=== PATIENT | female | born 1970 | race Caucasian/White ===

== ENCOUNTER 2022-12-24 02:22 | Emergency (ER) | payer OTHER, SELFPAY ==
[2022-12-24] VITALS (18 sets, daily range): BP systolic 148; BP diastolic 86; PULSE 59–78; RESP 7–25; TEMP 36.9; O2SAT 92–100; BMI 32.1
--- NOTE | 2022-12-24 02:37 | XR_ITS ---
The [address] [address] Patient Name: LAURY CRISOSTOMO MRN: [id number] date: 1970 Sex: F Assigned Patient Location: ER Current Patient Location: ED.MAIN Accession/Order Number: [id number] Exam Date: 12/24/2022 02:50 Report Date: 12/24/2022 03:40 At the request of: SANTIAGO DENG Procedure: XR chest 1V XR chest 1V 12/24/2022 2:50 AM EDT CLINICAL INDICATION: Abdominal pain COMPARISON: None. TECHNIQUE: Portable semiupright AP view of the chest. FINDINGS: There are no tubes or implants noted. Cardiac silhouette appears enlarged. No pulmonary edema. The lungs are clear. No pneumothorax or pleural effusion. Osseous structures and soft tissues are within normal limits. XR/XR chest 1V IMPRESSION: No acute cardiopulmonary abnormality. Electronically authenticated by: FARTUN JOSUE Date: 12/24/2022 03:40
--- NOTE | 2022-12-24 02:37 | ED_ITS ---
HPI - Abdominal Pain General Chief Complaint: Abdominal Pain Stated Complaint: ABD PAIN Time Seen by Provider: 12/24/22 02:35 Source: patient Mode of arrival: walk-in Limitations: no limitations History of Present Illness HPI narrative: epigastric abdominal pain on and off over the past 2 weeks vomited with episode of pain last week. No nausea or vomiting tonight but has epigastric pain that radiates into her back. No fever or dyspnea. No pleuritic pain MD elicited complaint: Reports abdominal pain Related Data Home Medications Medication Instructions Recorded Confirmed lisinopril 10 mg tablet mg 12/24/22 Allergies Allergy/AdvReac Type Severity Reaction Status Date / Time No Known Drug Allergies Allergy Verified 12/24/22 02:28 Review of Systems ROS Status of ROS 10 or more systems reviewed and unremarkable except as noted in history and below Gastrointestinal Reports: abdominal pain PFSH PFSH Social History Smoking status: Never smoker Exam Constitutional Vital Signs, click to edit/add: Last Vital Signs Temp 98.5 F 12/24/22 02:24 Pulse 75 12/24/22 04:10 Resp 21 12/24/22 04:10 BP 148/86 H 12/24/22 02:24 Pulse Ox 92 L 12/24/22 04:10 O2 Del Method Room Air 12/24/22 02:24 Common normals: oriented x3, no limitations, healthy appearing and alert HENMO Common normals: normocephalic and head/scalp atraumatic Eye Common normals: PERRL, EOMs intact bilaterally and conjunctivae normal Respiratory Common normals: normal respiratory effort, no retractions, no use of accessory muscles and clear to auscultation bilaterally Cardio Common normals: no JVD, regular rate, regular rhythm, S1 normal heart sound and S2 normal heart sound GI Other: epigastric and RUQ tenderness. No guarding Extremity Common normals: normal to inspection and full ROM Neuro Common normals: oriented x3, CN's II-XII intact bilaterally, moves all extremities, no focal motor deficits and no sensory deficits noted Psych Appearance: grossly normal Course Vital Signs Vital signs: Vital Signs Temperature 98.5 F 12/24/22 02:24 Pulse Rate 78 12/24/22 02:24 Respiratory Rate 18 12/24/22 02:24 Blood Pressure 148/86 H 12/24/22 02:24 Pulse Oximetry 99 12/24/22 02:24 Oxygen Delivery Method Room Air 12/24/22 02:24 Temperature 98.5 F 12/24/22 02:24 Pulse Rate 75 12/24/22 04:10 Respiratory Rate 21 12/24/22 04:10 Blood Pressure 148/86 H 12/24/22 02:24 Pulse Oximetry 92 L 12/24/22 04:10 Oxygen Delivery Method Room Air 12/24/22 02:24 MDM - Abdominal Pain MDM Narrative Medical decision making narrative: presents with recurrent episodes of epigastric pain. LFTs WNL. CBC WNL. no fever. CT with normal appearing gallbladder and gallstones. Patient medicated with Toradol and her pain is down to 3 or less. Re exam of her abdomen found she is no longer tender. Patient informed of the diagnosis of biliary colic and the need to follow up with gen. surgery. Discharged home with instructions to return if pain increases again. Otherwise follow up with Dr Levy Differential Diagnosis Differential diagnosis: Likely constipation, diverticulitis, gastroenteritis, pancreatitis and small bowel obstruction Lab Data Labs: Lab Results 12/24/22 Range/Units 02:30 WBC 8.6 (4.0-11.0) 10^3/uL RBC 4.46 (4.20-5.40) 10^6/uL Hgb 13.3 (12.0-16.0) g/dL Hct 37.8 (36.0-48.0) % MCV 84.8 (81.0-99.0) fL MCH 29.8 (26.7-34.0) pg MCHC 35.2 (29.9-35.2) g/dL RDW 11.9 (11.0-15.0) % Plt Count 197 (150-450) 10^3/uL MPV 11.1 (9.5-13.5) fL Neut % (Auto) 58.1 (43.0-75.0) % Lymph % (Auto) 32.8 (20.5-60.0) % [place] % (Auto) 5.0 (1.7-12.0) % Eos % (Auto) 3.0 (0.9-7.0) % Baso % (Auto) 0.8 (0.2-2.0) % Neut # (Auto) 5.0 (1.4-6.5) 10^3/uL Lymph # (Auto) 2.8 (1.2-3.8) 10^3/uL [place] # (Auto) 0.4 (0.3-0.8) 10^3/uL Eos # (Auto) 0.3 (0.0-0.7) 10^3/uL Baso # (Auto) 0.1 (0.0-0.1) 10^3/uL Abs Immat Gran (auto) 0.03 (0.00-0.03) 10^3/uL Imm/Tot Granulo (auto) 0.3 (0.0-0.5) % Sodium 144 (136-145) mmol/L Potassium 3.5 (3.5-5.1) mmol/L Chloride 107 (98-107) mmol/L Carbon Dioxide 30.1 (21.0-32.0) mmol/L Anion Gap 10.4 BUN 18.0 (7.0-18.0) mg/dL Creatinine 0.84 (0.55-1.02) mg/dL Est GFR ( Amer) >60 (>=60) Est GFR (Non-Af Amer) >60 (>=60) BUN/Creatinine Ratio 21.4 Glucose 125 H (74-106) mg/dL Lactate 1.0 (0.4-2.0) mmol/L Calcium 8.6 (8.5-10.1) mg/dL Total Bilirubin 0.3 (0.2-1.0) mg/dL AST 13 L (15-37) U/L ALT 12 L (14-59) U/L Alkaline Phosphatase 104 (46-116) U/L Troponin I High Sens 5.0 (4.0-51.3) pg/mL Total Protein 6.9 (6.4-8.2) g/dL Albumin 3.9 (3.4-5.0) g/dL Globulin 3.0 g/dL Albumin/Globulin Ratio 1.3 Discharge Plan Discharge Chief Complaint: Abdominal Pain Clinical Impression: Colic, biliary Prescriptions / Home Meds: No Action lisinopril 10 mg tablet Instructions: Gallstones (ED) Additional Instructions: follow up with Dr Levy. Return if pain increases Stand Alone Forms: Portal Instructions Referrals: Keo Woodruff MD [Primary Care Provider] - 1 week
--- NOTE | 2022-12-24 02:38 | ECG_ITS ---
The [facility] Test Date: 2022-12-24 Pat Name: Alana Huggins Department: Room: - Gender: Female [employer]: : 1970 Requested By: RANJIT NARANJO Order Number: [id number] Reading MD: RANJIT NARANJO Measurements Intervals [place] Rate: 69 P: 63 PA: 166 QRS: 65 QRSD: 78 T: 28 QT: 384 QTc: 404 Interpretive Statements 1100 Sinus rhythm 9110 normal ECG No previous ECG available for comparison Electronically Signed On 12-25-2022 6:37:08 EDT by RANJIT NARANJO
--- NOTE | 2022-12-24 02:46 | PC.NURSE ---
pt presents to ED because patient states for the last couple weeks she has had epigastric pain. the pain today began to radiate into patients back. 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 pt states that it keeps happening and waking her up out of sleep when shes laying down. no hx of gerd. no previous abdominal surgeries.
[2022-12-24 03:10] LABS: Basophils Absolute Auto 0.1 10^3/uL (0.0-0.1); Basophils Percent Auto 0.8 % (0.2-2.0); Eosinophils Absolute Auto 0.3 10^3/uL (0.0-0.7); Hematocrit 37.8 % (36.0-48.0); Hemoglobin 13.3 g/dL (12.0-16.0); Immature Granulocytes Abs Auto 0.03 10^3/uL (0.00-0.03); Immature Granulocytes Pct Auto 0.3 % (0.0-0.5); Lymphocytes Absolute Auto 2.8 10^3/uL (1.2-3.8); Lymphocytes Percent Auto 32.8 % (20.5-60.0); Mean Corpuscular HGB Conc 35.2 g/dL (29.9-35.2); Mean Corpuscular Hemoglobin 29.8 pg (26.7-34.0); Mean Corpuscular Volume 84.8 fL (81.0-99.0); Mean Platelet Volume 11.1 fL (9.5-13.5); Monocytes Absolute Auto 0.4 10^3/uL (0.3-0.8); Neutrophils Percent Auto 58.1 % (43.0-75.0); Platelet Count 197 10^3/uL (150-450); Red Blood Count 4.46 10^6/uL (4.20-5.40); Red Cell Distribution Width 11.9 % (11.0-15.0); White Blood Count 8.6 10^3/uL (4.0-11.0)
[2022-12-24 03:39] LABS: Alanine Aminotransferase 12 U/L (14-59); Albumin Globulin Ratio 1.3; Albumin Level 3.9 g/dL (3.4-5.0); Alkaline Phosphatase 104 U/L (46-116); Anion Gap 10.4; Aspartate Amino Transferase 13 U/L (15-37); BUN Creatinine Ratio 21.4; Bilirubin Total 0.3 mg/dL (0.2-1.0); Calcium 8.6 mg/dL (8.5-10.1); Carbon Dioxide 30.1 mmol/L (21.0-32.0); Chloride 107 mmol/L (98-107); Estimated GFR (African America >60 (>=60); Estimated GFR (Non-African Ame >60 (>=60); Glucose 125 mg/dL (74-106); Potassium 3.5 mmol/L (3.5-5.1); Sodium 144 mmol/L (136-145); Total Protein 6.9 g/dL (6.4-8.2)
--- NOTE | 2022-12-24 03:40 | CT_ITS ---
[address] [address] Patient Name: LAURY CRISOSTOMO MRN: [id number] date: 1970 Sex: F Assigned Patient Location: ED.MAIN Current Patient Location: Accession/Order Number: [id number] Exam Date: 12/24/2022 03:28 Report Date: 12/24/2022 04:01 At the request of: SANTIAGO DENG Procedure: CT abdomen pelvis w con EXAM: CT abdomen pelvis w con HISTORY: epigastric pain COMPARISON: None. TECHNIQUE: Axial CT images through the abdomen and pelvis were obtained after the intravenous administration of 100 mL Omnipaque 300 contrast. Coronal and sagittal reformats were obtained. Dose reduction techniques were achieved by using automated exposure control and/or adjustment of mA and/or kV according to patient size and/or use of iterative reconstruction technique. FINDINGS: There is a 0.3 cm pleural-based nodule in the left lower lobe (series 3, image 5). There is a 0.3 cm pleural-based nodule in the right middle lobe (series 3, image 13). Abdomen: The liver and spleen enhance homogeneously without focal lesion. There is no intra or extrahepatic biliary duct dilatation. There is cholelithiasis without evidence of acute inflammation. The spleen is enlarged measuring up to 15.8 cm. The pancreas, adrenal glands, kidneys, and bowel loops are unremarkable. There is no mesenteric or retroperitoneal lymphadenopathy. High density material is seen within the appendix which is mildly dilated measuring up to 0.8 cm. There are no surrounding inflammatory changes. Pelvis: The bladder and rectum are unremarkable. There is no iliac or inguinal lymphadenopathy. The uterus is present. The ovaries appear within normal limits by CT. Suspected cervical nabothian cysts are seen. There is mild atherosclerotic disease. Bone windows show no aggressive osseous lesions. CT/CT abdomen pelvis w con IMPRESSION: 1. Cholelithiasis without evidence of acute inflammation. 2. There are a couple pleural-based nodules in the lung bases measuring up to 0.3 cm. Recommend follow-up according to Fleischner Society guidelines: An optional CT of the chest in the one year if the patient is high risk. 3. Splenomegaly. 4. High density material within the appendix which is mildly dilated measuring up to 0.8 cm; however, there are no surrounding inflammatory changes, and acute appendicitis is felt unlikely. Electronically authenticated by: Alfonso ONTIVEROS Date: 12/24/2022 04:01
[2022-12-24] MEDS: 0.9 % SODIUM CHLORIDE 1,000 ML 999 ML IV (03:50)
[2022-12-24] MEDS: KETOROLAC TROMETHAMINE 30 MG/ML VIAL IVP (04:32)
== END 2022-12-24 05:37 | disposition home or self-care (01) ==
PROVIDERS: Emergency Provider Internal Medicine; PCP Family Medicine
DX: K80.50 Calculus of bile duct without cholangitis or cholecystitis without obstruction (principal); Z79.899 Other long term (current) drug therapy
CPT/HCPCS: 36415; 71045; 74177; 80053; 83605; 84484; 85025; 93005; 96374; 99285; Q9967

== ENCOUNTER 2023-02-03 08:10 | Outpatient (OUT) | payer OTHER, SELFPAY ==
--- NOTE | 2023-02-03 08:53 | US_ITS ---
The [address] [address] Patient Name: LAURY CRISOSTOMO MRN: [id number] date: 1970 Sex: F Assigned Patient Location: [facility] Current Patient Location: [facility] Accession/Order Number: [id number] Exam Date: 02/03/2023 08:55 Report Date: 02/03/2023 09:39 At the request of: BERNARD ROMERO Procedure: US right upper quadrant EXAM: US right upper quadrant HISTORY: . Calculus Of Gallbladder K80.20 . COMPARISON: None. TECHNIQUE: Grayscale and color imaging was performed FINDINGS: Pancreas appears normal. The liver is normal in size. No masses are noted. Color-flow is noted. Scanning of the gallbladder demonstrates an echogenic focus within the gallbladder with shadowing consistent with a gallstone. This measures approximately 1.6 mm. No gallbladder wall thickening is noted. Patient had no pain upon scanning over the gallbladder. Right kidney measures 10.2 x 4.2 x 4 cm. Color-flow is noted. No solid renal cortical masses or hydronephrosis is noted. No fluid is noted in the right upper quadrant. US/US right upper quadrant IMPRESSION: 1. Cholelithiasis. No gallbladder wall thickening. Patient had no pain upon scanning over the gallbladder. 2. The remainder the right upper quadrant was unremarkable. Electronically authenticated by: DAVID JANG Date: 02/03/2023 09:39
[2023-02-03 09:11] LABS: Basophils Absolute Auto 0.1 10^3/uL (0.0-0.1); Basophils Percent Auto 0.9 % (0.2-2.0); Eosinophils Absolute Auto 0.2 10^3/uL (0.0-0.7); Eosinophils Percent Auto 2.2 % (0.9-7.0); Hematocrit 40.3 % (36.0-48.0); Hemoglobin 14.1 g/dL (12.0-16.0); Immature Granulocytes Abs Auto 0.03 10^3/uL (0.00-0.03); Immature Granulocytes Pct Auto 0.3 % (0.0-0.5); Lymphocytes Percent Auto 21.3 % (20.5-60.0); Mean Corpuscular Hemoglobin 29.3 pg (26.7-34.0); Mean Corpuscular Volume 83.6 fL (81.0-99.0); Monocytes Absolute Auto 0.4 10^3/uL (0.3-0.8); Monocytes Percent Auto 4.1 % (1.7-12.0); Neutrophils Absolute Auto 6.5 10^3/uL (1.4-6.5); Neutrophils Percent Auto 71.2 % (43.0-75.0); Platelet Count 185 10^3/uL (150-450); Red Blood Count 4.82 10^6/uL (4.20-5.40); Red Cell Distribution Width 12.1 % (11.0-15.0); White Blood Count 9.2 10^3/uL (4.0-11.0)
[2023-02-03 09:17] LABS: Alanine Aminotransferase 35 U/L (14-59); Albumin Globulin Ratio 1.2; Albumin Level 3.9 g/dL (3.4-5.0); Alkaline Phosphatase 104 U/L (46-116); Anion Gap 12.8; Aspartate Amino Transferase 27 U/L (15-37); Bilirubin Direct 0.2 mg/dL (0.0-0.2); Bilirubin Total 0.5 mg/dL (0.2-1.0); Chloride 105 mmol/L (98-107); Estimated GFR (African America >60 (>=60); Estimated GFR (Non-African Ame >60 (>=60); Globulin 3.2 g/dL; Glucose 118 mg/dL (74-106); Potassium 4.8 mmol/L (3.5-5.1); Sodium 143 mmol/L (136-145); Total Protein 7.1 g/dL (6.4-8.2)
[2023-02-03 09:30] LABS: INR 0.97; Partial Thromboplastin Time 26.7 sec (22.3-36.2); Prothrombin Time 10.3 sec (9.0-11.6)
== END 2023-02-03 08:11 | disposition home or self-care (01) ==
LOC: PST 08:10
PROVIDERS: PCP Family Medicine; Visit Provider Surgery
DX: Z01.812 Encounter for preprocedural laboratory examination (principal); K80.20 Calculus of gallbladder without cholecystitis without obstruction; I50.9 Heart failure, unspecified
CPT/HCPCS: 76705; 80048; 80076; 83690; 85025; 85610; 85730

== ENCOUNTER 2023-02-12 08:04 | Day surgery (SDC) | payer OTHER, SELFPAY ==
[2023-02-03 08:37] VITALS: BP 155/87; PULSE 69; RESP 20; TEMP 36.4; O2SAT 99; BMI 32.5
[2023-02-12] VITALS (17 sets, daily range): BP systolic 127–165; BP diastolic 73–99; PULSE 62–88; RESP 10–21; TEMP 36.1–36.3; O2SAT 94–100; BMI 32.0
--- NOTE | 2023-02-12 | OP_ITS ---
OPERATION DATE: ??02/12/2023 PREOPERATIVE DIAGNOSIS:? Symptomatic cholelithiasis. POSTOPERATIVE DIAGNOSIS:? Symptomatic cholelithiasis. PROCEDURE:? Laparoscopic cholecystectomy. SURGEON:? Andriy Stanford M.D. ANESTHESIA:? General endotracheal. ESTIMATED BLOOD LOSS:? Less than 10 mL. INDICATIONS AND CONSENT:? Patient is a 53-year-old female with history of several months of biliary colic.? Patient worsened over the last several weeks.? She has had normal liver function tests and ultrasound.? CT scan revealed two 1 cm stones in the fundus of the gallbladder.? Indications, risks, benefits, alternatives of proceeding with laparoscopic cholecystectomy were explained extensively to the patient, including risks of bleeding, infection, scarring, pain, bile duct injury, bowel injury, need for intraoperative cholangiogram, postoperative ERCP, open procedure, blood clot, pulmonary embolus, heart attack, anesthetic complications or need for further surgery.? All of her questions were answered.? Informed consent was obtained. PROCEDURE:? Patient brought to the operating room, placed in the supine position.? General anesthesia was induced.? She was prepped and draped in the usual sterile fashion.? A supraumbilical incision was made with the scalpel blade and carried down through subcutaneous tissue using blunt dissection.? The fascia was grasped and incised.? Two 0 Vicryl stay sutures placed in either side of the midline fascia.? The Madden trocar was then inserted and secured using the stay sutures.? The abdomen was then insufflated with carbon dioxide to a pressure of 15 mm/Hg.? The scope was then inserted and the abdomen was visualized.? Three 5 mm ports were then placed; one in the subxiphoid area, two in the right subcostal area, all under direct visualization.? The patient was placed in reverse Trendelenburg position with the right side up.? The gallbladder was grasped with an atraumatic grasper at the fundus, retracted cephalad and to the patient?s right.? The infundibulum was grasped and retracted laterally and inferiorly.? Dissection was begun just below the infundibulum, where the cystic duct and cystic artery were carefully dissected out.? The cystic duct was noted to be twisted by some scarring, causing a partial obstruction.? The cystic duct was noted to be a normal caliber, as was the cystic artery.? There was also a posterior branch.? Once the infundibulum was completely freed up from the hepatic plate, a critical view safety was obtained.? The artery was clipped with the Hem-O-Sergey clip and regular clip proximally and a regular clip distally and then divided, as was the posterior branch.? The cystic duct was then clipped with two Hem-O-Sergey clips proximally and one distally towards the gallbladder and then divided.? The gallbladder was then taken down from the liver bed using electrocautery.? There was a side vessel branch that was controlled with a clip.? Once the gallbladder was completely removed, it was brought out in an Endocatch bag through the umbilical port site.? The abdomen was then copiously irrigated.? The liver bed was inspected.? There was noted to be good hemostasis.? No evidence of bile leak.? All port sites were examined upon withdrawal of the ports.? There was noted to be good hemostasis.? The umbilical port site fascia was then closed with 0 Vicryl figure of eight suture.? All port sites were infiltrated with 0.5% Marcaine.? The skin was then closed with interrupted 4-0 subcuticular Monocryl sutures and skin glue.? Sterile pressure dressing was applied with 4 x 4?s, Medipore tape.? Patient tolerated procedure well, was extubated and sent to recovery room in good condition. CC:? Keo Woodruff M.D. JILL
[2023-02-12] MEDS: LACTATED RINGER'S SOLUTION 1,000 ML 50 ML IV ×2 (08:36→12:12)
[2023-02-12] MEDS: AMPICILLIN SODIUM/SULBACTAM NA 3 GM in 0.9 % SODIUM CHLORIDE 100 ML IV (11:21)
[2023-02-12] MEDS: BUPIVACAINE HCL 0.5% PF 50 MG/10 ML VIAL 20 ML INJ (12:06)
[2023-02-12] MEDS: MORPHINE SULFATE 4 MG/ML VIAL IV (13:07)
--- NOTE | 2023-02-12 14:15 | PC.NURSE ---
pATIENT WAS EDUCATED AND SHE DEMONSTRATED HOW TO USE PEP DEVICE.
== END 2023-02-12 14:37 | disposition home or self-care (01) ==
PROVIDERS: PCP Family Medicine; Visit Provider Surgery
PROC: (CPT 47562; principal; 2023-02-12 08:45)
DX: K80.10 Calculus of gallbladder with chronic cholecystitis without obstruction (principal); I11.0 Hypertensive heart disease with heart failure; I50.9 Heart failure, unspecified; E66.9 Obesity, unspecified; I87.2 Venous insufficiency (chronic) (peripheral); Z79.899 Other long term (current) drug therapy; Z68.31 Body mass index [BMI] 31.0-31.9, adult
CPT/HCPCS: 47562; 36415; 84702; 88304; 94667; J2704

== ENCOUNTER 2024-07-12 07:06 | Outpatient (OUT) | payer OTHER, SELFPAY ==
[2024-07-12 07:34] LABS: Basophils Absolute Auto 0.1 10^3/uL (0.0-0.1); Basophils Percent Auto 0.8 % (0.2-2.0); Eosinophils Absolute Auto 0.2 10^3/uL (0.0-0.7); Eosinophils Percent Auto 3.2 % (0.9-7.0); Hematocrit 39.7 % (36.0-48.0); Hemoglobin 13.9 g/dL (12.0-16.0); Immature Granulocytes Abs Auto 0.02 10^3/uL (0.00-0.03); Immature Granulocytes Pct Auto 0.3 % (0.0-0.5); Lymphocytes Absolute Auto 2.2 10^3/uL (1.2-3.8); Lymphocytes Percent Auto 30.6 % (20.5-60.0); Mean Corpuscular Hemoglobin 29.5 pg (26.7-34.0); Mean Corpuscular Volume 84.3 fL (81.0-99.0); Mean Platelet Volume 10.9 fL (9.5-13.5); Monocytes Absolute Auto 0.3 10^3/uL (0.3-0.8); Monocytes Percent Auto 4.1 % (1.7-12.0); Neutrophils Absolute Auto 4.3 10^3/uL (1.4-6.5); Platelet Count 185 10^3/uL (150-450); Red Blood Count 4.71 10^6/uL (4.20-5.40); Red Cell Distribution Width 12.2 % (11.0-15.0); White Blood Count 7.1 10^3/uL (4.0-11.0)
[2024-07-12 07:39] LABS: Erythrocyte Sedimentation Rate 9 mm/hr (<=30)
[2024-07-12 07:59] LABS: Estimated Average Glucose 123 mg/dL; Glycohemoglobin A1C 5.9 % (4.5-6.2)
[2024-07-12 08:16] LABS: Alanine Aminotransferase 32 U/L (14-59); Albumin Globulin Ratio 1.2; Albumin Level 3.8 g/dL (3.4-5.0); Alkaline Phosphatase 89 U/L (46-116); Anion Gap 11.7; Aspartate Amino Transferase 17 U/L (15-37); Bilirubin Total 0.4 mg/dL (0.2-1.0); C Reactive Protein 0.77 mg/dL (<=0.50); Calcium 8.8 mg/dL (8.5-10.1); Carbon Dioxide 28.3 mmol/L (21.0-32.0); Chloride 107 mmol/L (98-107); Chol HDL Ratio 2.3; Cholesterol 151 mg/dL (<=200); Estimated GFR (African America >60 (>=60 mL/min/1.73m^2); Estimated GFR (Non-African Ame >60 (>=60 mL/min/1.73m^2); Free T3 3.44 pg/mL (2.18-3.98); Globulin 3.1 g/dL; Glucose 111 mg/dL (74-106); HDL Cholesterol 66 mg/dL (40-60); Sodium 143 mmol/L (136-145); Thyroid Stimulating Hormone 1.705 uIU/mL (0.358-3.740); Total Protein 6.9 g/dL (6.4-8.2); Triglycerides 112 mg/dL (<=150); VLDL CHOLESTEROL 22.4 mg/dL
[2024-07-13 03:10] LABS: Insulin 12.3 uIU/mL (2.6-24.9); Vitamin B12 361 pg/mL (232-1245)
== END 2024-07-12 07:07 | disposition home or self-care (01) ==
LOC: LAB 07:08
PROVIDERS: PCP Family Medicine; Visit Provider Family Medicine
DX: R41.3 Other amnesia (principal)
CPT/HCPCS: 36415; 80053; 80061; 82306; 82607; 82746; 83036; 83525; 83540; 84436; 84443; 84481; 85025; 85652; 86140

== ENCOUNTER 2024-07-26 08:40 | Outpatient (OUT) | payer OTHER, SELFPAY ==
--- NOTE | 2024-07-26 08:43 | CT_ITS ---
[address] [address] Patient Name: LAURY CRISOSTOMO MRN: [id number] date: 1970 Sex: F Assigned Patient Location: CT Current Patient Location: CT Accession/Order Number: [id number] Exam Date: 07/26/2024 08:51 Report Date: 07/26/2024 15:08 At the request of: RANJIT NARANJO Procedure: CT head/brain wo/w con EXAM: CT head/brain wo/w con CLINICAL INDICATION: Migraine, Memory Loss COMPARISON: None TECHNIQUE: Axial CT images of the brain were obtained prior to and following 100 cc of Omnipaque 300 intravenous contrast. Coronal and sagittal reformats were obtained. Dose reduction techniques were achieved by using automated exposure control and/or adjustment of mA and/or kV according to patient size and/or use of iterative reconstruction technique. FINDINGS: No intracranial hemorrhage, extra-axial fluid collection, hydrocephalus, midline shift, or acute infarction. No other mass effect. Patent basal cisterns. No abnormal parenchymal or extra-axial enhancement. No calvarial fracture. Normal soft tissues. Paranasal sinuses and mastoid air cells are well-aerated. CT/CT head/brain wo/w con IMPRESSION: No acute intracranial process or abnormal enhancement. Electronically authenticated by: JULES GONZALEZ Date: 07/26/2024 15:08
== END 2024-07-26 08:41 | disposition home or self-care (01) ==
LOC: CT 08:41
PROVIDERS: PCP Family Medicine; Visit Provider Family Medicine
DX: G43.909 Migraine, unspecified, not intractable, without status migrainosus (principal); R41.3 Other amnesia
CPT/HCPCS: 70470; Q9967

== ENCOUNTER 2025-03-02 07:29 | Outpatient (OUT) | payer OTHER, SELFPAY ==
--- OUTSIDE RECORDS SUMMARY | 2025-02-18 10:15 | XMS_ITS ---
Author Organization [facility] in [place] Address [address] [place] [address] Care Team Providers Care Conveyor Weigher Operator Name Role Phone Ranjan Declan Primary Care Provider [phone] Allergies No Known Allergies Reason For Referral Reason Colonsocopy Diagnosis 1 Well adult (Z00) Referral Organization [facility] Referring Provider First Name Declan Referring Provider Last Name Ranjan Referring Provider Speciality Family Med tatyana Referred Provider Andriy Stanford Referred Provider Specialty General Surg barbie Referral Priority Routine REASON FOR VISIT wellness, wants a colonoscopy Medications Medication SIG (Take, Route, Frequency, Duration) Notes Start Date End Date Status Cholecalciferol 50 MCG (1999) 1 capsule Orally Once a day 07/13/2024 Not-Taking Imitrex 100 MG 1 tablet at least 2 hours between doses as needed Orally Twice a day 06/28/2024 Active Lisinopril 10 MG TAKE 1 TABLET BY MOUTH EVERY DAY FOR 30 DAYS; Duration: 30 days Active Social History Tobacco Use: Social History Observation Description Date Details (start date - stop date) Never Smoker NA - NA Tobacco Use/Smoking Question Answer Notes Patient is a nonsmoker Problems Problem Type SNOMED Code ICD Code Onset Dates Problem Status W/U Status Risk Notes Problem Well adult (699687351) Well adult (Z00.00) Active confirmed Vital Signs Weight 189.8 lbs 02/18/2025 Height 61 in 02/18/2025 Blood pressure systolic 126 mm Hg 02/19/20 25 Blood pressure diastolic 82 mm Hg 025 BMI 35.86 kg/m2 02/18/2025 Encounters Encounter Location Date Provider Diagnosis [facility] [address] [facility] [place] [address] 02/18/2025 Declan Woodruff Well adult Z00.0 0 Assessments Encounter Date Diagnosis (ICD Code) Assessment Notes Treatment Notes Treatment Clinical Notes Section Notes 02/18/2025 Well adult (ICD-10 - Z00.00) Plan Of Treatment Referrals Referral Date Details 02/18/2025 02/18/2025, Colonsoc opy, Andriy Stanford Progress Notes * Alana CRISOSTOMO MDOB: [birth year] (55 yo F)Acc No.[id number]:02/18/2025 Progress Note Patient: Alana FOREMAN Provider: Hermelinda Woodruff ([facility])MD :1970 A ge:55 Y S ex:Female Date:02/18/2025 [address] [id number] Check In:02:15 PM ESTCheck O ut:02:56 PM EST Subjective: * Chief Complaints: * W ellnessWants a colonoscopy * HPI: G eneral: well dult no FH colonoscopy. * ROS: E ENT: hearing changes d enies. v isual changes d enies.?non-healing mouth sores d enies. s wollen glands or neck lumps d enies. h oarseness d enies. s ore throat d enies. d ifficulty swallowing d enies. n ose bleeds d enies. n kavitha congestion d enies. e ar ache d enies. e ar discharge?denies. r inging in ears d enies. l ight sensitivity d enies. e ye pain d enies. b lurring d enies. e ye irritation d enies. d ouble vision d enies.?vision loss d enies. G eneral/Constitutional: Sweats: D enies. F atigue d enies. S leep problems d enies. A norexia d enies. M alaise d enies. W eight loss d enies.?Fatigue or Weakness d enies. F ever or Chills d enies. C ardiovascular: Shortness of Breath w/lying flat d enies. L ightheadedness/dizziness d enies. C hest tightness/ heavy pressure d enies. S welling of legs, ankles, or feet d enies. W aking up with shortness of breath d enies. C hest pain denies. P alpitations d enies. W eight gain d enies. R espiratory: Chronic or frequent cough d enies. C oughing up blood?denies. D ifficulty breathing d enies. P roductive cough d enies. S noring?denies. S hortness of breath that awakens from sleep (PND) d enies. C hest pain d enies. S putum production d enies. W heezing d enies. M usculoskeletal: Joint pain d enies. J oint Fluid d enies. B ack pain d enies. K nee pain d enies. N brittany pain d enies. J oint Stiffness d enies. M uscle cramps d enies. W eakness of muscles d enies. A rthritis d enies. M uscle aches d enies. P ain in shoulder(s) d enies. S wollen joints d enies. * Active Problem List G43.909 Migraine headache Modified On:11/08/2022 Status:confirmed I50.9 CHF (congestive hear t failure) Modified On:11/08/2022 Status:confirmed I87.2 Venous insufficiency Modified On:11/08/2022 Status:confirmed R03.0 Elevated blood-press ure reading, without diagnosis of hypertension Modified On:11/08/2022 Status:confirmed K80.20 Calculus of gallblad roula without cholecystitis without obstruction Modified On:12/26/2022 Status:confirmed B35.4 Tinea corporis Modified On:02/20/2024 Status:confirmed R41.3 Memory loss Modified On:06/28/2024 Status:confirmed G43.909 Migraine Modified On:06/28/2024 Status:confirmed Z00.00 Well adult Modified On:09/12/2025W/U Status:confirmed * Medical History: * Surgical History: S urgical mesh in head from trauma D&C [place] teeth Laproscopic Cholecystectomy 02/12/2023 * Hospitalization/Major Diagno stic Procedure: D enies Past Hospitalization * Family History: F ather: , from [place], diagnosed with Unspecified heart disease, Unspecified essential hypertension. M other: , CVA at 46, diagnosed with Unspecified heart disease. Brother(s): alive, oldest brother from [place] at age 47, diagnosed with Unspecified essential hypertension, Unspecified heart disease. S ister(s): alive. S on(s): alive. 6 brother(s) , 2 sister(s) . 1 son(s) - healthy. . * Social History: T obacco Use: T obacco Use/Smoking P atient is a n onsmoker * Medications: T akingImitrex(SUMAtriptan Succinate) 100 MG Tablet 1 tablet at least 2 hours between doses as needed Orally Twice a day Lisinopril 10 MG Tablet TAKE 1 TABLET BY MOUTH EVERY DAY FOR 30 DAYS Taking Imitrex(SUMAtriptan Succinate) 100 MG Tablet 1 tablet at least 2 hours between doses as needed Orally Twice a day Taking Lisinopril 10 MG Tablet TAKE 1 TABLET BY MOUTH EVERY DAY FOR 30 DAYS Not- Taking/PRNCholecalciferol 50 MCG (1999 UT) Capsule 1 capsule Orally Once a day Not-Taking/PRN Cholecalciferol 50 MCG (2000 UT) Capsule 1 capsule Orally Once a day DiscontinuedValium(diazePAM) 5 MG Tablet 1 tablet as needed Orally once about 1 hour before procedure Medication List reviewed and reconciled with the patientDiscontinued Valium(diazePAM) 5 MG Tablet 1 tablet as needed Orally once about 1 hour before procedure Medication List reviewed and reconciled with the patient * Allergies: N .K.D.A.no[Allergies Verified] Objective: * Vitals: W t:189.8lbs, Ht: 61 in, BP:126/82mm Hg, BMI:35.86Index, Ht-cm: 154.94 cm, Wt-k.09 kg. * Examination: P hysical Exam: GENERAL: w ell developed, well nourished, in no acute distress. HEAD: n ormocephalic/atraumatic. EYES: p upils equal, round and reactive to light, conjunctivae and sclerae normal. EARS: n o deformity or lesion of external ear, canals and TM appear normal bilaterally, TM's intact, not inflamed with normal light reflex, hearing grossly normal to conversational speech. NOSE: n o deformity, discharge, inflammation, or lesions.? MOUTH: m ucous membranes moist, normal oropharynx and posterior pharynx without lesions or exudates, tongue normal, dentition normal. NECK: n brittany supple, no masses or palpable cervical nodes, trachea midline, thyroid without nodules, masses, tenderness, or enlargement. CHEST: n o chest wall deformity, no chest wall tenderness.? LUNGS: n ormal respiratory effort and clear to auscultation, no wheezes, rales, or rhonchi, good air exchange. CARDIO: r egular rate and rhythm, normal S1 and S2, nor murmur, rub, or gallop. PULSES: n ormal capillary refill. ABDOMEN: s oft, non-distended, non-tender, no masses. MUSCULOSKELETAL: n o deformity or scoliosis noted, normal range of motion, joints normal, no erythema, edema, effusion, or ecchymosis. EXTREMITY: n o clubbing, cyanosis, edema, or deformity with normal ROM in both upper and lower bilateral extremities. NEUROLOGIC: g rossly normal. SKIN: n o rashes, ulcerations, or suspicious lesions. LYMPH NODES: n o cervical adenopathy, nodes normal. MENTAL STATUS: a lert and oriented x3, normal mood and affect. Assessment: * Assessment: 1. W ell adult - Z00.00 (Primary) Plan: * Treatment: * Procedure Codes: * Preventive Medicine: Screenings/Counseling: B [place] ACTION PLAN Above Normal BMI Follow-up D ietary management education, guidance, and counseling * * Sign off status: Completed Visit Status: C HK (Check Out) true * Provider: Hermelinda Woodruff ([facility])MD Date: 0 02/18/2025 Generated for Ralph avila/Lore/eTransmitting on: 03/02/2025 07:31 AM EDT History and Physical Notes * HPI (History of Present Illness) Category Sub-Category Detail Notes Category Not es General well dult no FH colonoscopy Examination Category Sub-Category Detail Notes Category Not es Physical Exam GENERAL: well developed, well nourished, in no acute distress HEAD: normocephalic/atraum atic EYES: pupils equal, round and reactive to light, conjunctivae and sclerae normal EARS: no deformity or lesi on of external ear, canals and TM appear normal bilaterally, TM's intact, not inflamed with normal light reflex, hearing grossly normal to conversational speech NOSE: no deformity, discha rge, inflammation, or lesions MOUTH: mucous membranes [address], normal oropharynx and posterior pharynx without lesions or exudates, tongue normal, dentition normal NECK: neck supple, no mass es or palpable cervical nodes, trachea midline, thyroid without nodules, masses, tenderness, or enlargement CHEST: no chest wall deform ity, no chest wall tenderness LUNGS: normal respiratory e ffort and clear to auscultation, no wheezes, rales, or rhonchi, good air exchange CARDIO: regular rate and rhy thm, normal S1 and S2, nor murmur, rub, or gallop PULSES: normal capillary ref ill ABDOMEN: soft, non-distended, non-tender, no masses RECTAL: MUSCULOSKELETAL: no deformity or scol iosis noted, normal range of motion, joints normal, no erythema, edema, effusion, or ecchymosis EXTREMITY: no clubbing, cyanosi s, edema, or deformity with normal ROM in both upper and lower bilateral extremities NEUROLOGIC: grossly normal SKIN: no rashes, ulceratio ns, or suspicious lesions LYMPH NODES: no cervical adenopat hy, nodes normal MENTAL STATUS: alert and oriented x 3, normal mood and affect Consultation Request Notes Referral Date Referring Provider Referred Provider Not es 02/18/2025 Declan Woodruff Michael Colonsocopy
--- NOTE | 2025-03-02 07:31 | MM_ITS ---
Patient Name: LAURY CRISOSTOMO MR#: [id number] : 1970 Exam Date: 03/02/2025 Ordering Doctor: DR JUSTINE LOWE M.D. RADIOLOGY REPORT PROCEDURE: MM TOMOSYNTHESIS SCREENING BI COMPARISON: MG MAMM SCREEN 3D MASHA CAD, 12/04/2021. MG MAMM SCREEN MASHA W CAD, 12/08/2018. MG MAMM RT DIAG W CAD, 04/26/2011. MG MAMM SCREEN MASHA W CAD, 08/23/2010. INDICATIONS: Screening Calculator Name NCI Breast Cancer Risk Assessment Tool 5 Year Breast Cancer Risk 1.70% Lifetime Breast Cancer Risk 12.40% Personal Breast Cancer No Personal Ovarian Cancer No Treatments None Family Cancers None LOCATION: [facility] BREAST COMPOSITION: The breasts are heterogeneously dense, which may obscure small masses. FINDINGS: RIGHT BREAST: No significant suspicious finding. Benign-appearing calcifications noted on the right. LEFT BREAST: No significant suspicious finding. DIAGNOSTIC CATEGORY 2--BENIGN FINDING. NO CHANGE FROM COMPARISON. RECOMMENDATIONS: ROUTINE MAMMOGRAM AND CLINICAL EVALUATION IN 12 MONTHS. Dictated by: Sukhdeep Tate MD on 03/02/2025 at 11:15 Approved by: Sukhdeep Tate MD on 03/02/2025 at 11:20
--- OUTSIDE RECORDS SUMMARY | 2025-03-02 07:31 | XMS_ITS | Encounter Summary ---
Author Organization [facility] Address [address] [place] [id number] Care Team Providers Care Liquid Hydrogen Plant Operator Name Role Phone Keo Woodruff MD Primary Care Provider [phone] Source Comments In the event this information is protected by the Federal Confidentiality of Alcohol and Drug AbusePatient Records regulations: The Federal rules restrict any use of the information to criminally investigate or prosecute any alcohol or drug abuse patient.[facility] Encounter Details Date Type Department Care Team (Late st Contact Info) Description 02/23/2025 Get Medical Advice Neurology [address] [place] [address] Rachelle Adkins MD [address] [place] [address] Next step in plan Social History Tobacco Use Types Packs/Day Years Used Date Smoking Tobacco: Never Assessed PHQ-2 Answer Date Recorded PHQ-2 score 0 10/10/2024 Comments Unknown Sex and Gender Information Value Date Recorded Sex Assigned at Female 07/05/2024 6:16 PM EST Legal Sex Female 12:39 PM EST Gender Identity Female 07/05/2024 6:16 PM EST Sexual Orientation Straight 07/05/2024 6: 16 PM EST documented as of this encounter Plan of Treatment Not on file documented as of this encounter Visit Diagnoses Not on filedocumented in this encounter Care Teams Liquid Hydrogen Plant Operator Relationship Specialty Start Date End Date Keo Woodruff MD PCP - General Family Medicine 05/30/14 documented as of this encounter
--- OUTSIDE RECORDS SUMMARY | 2025-03-02 07:31 | XMS_ITS | Clinical Summary ---
Author Organization [facility] Address [facility] [place] [address] Care Team Providers Care Leather Whitener Name Role Phone Keo Woodruff MD Primary Care Provider [phone] Medications lisinopril (ZESTRIL) 10 mg tablet Take 10 mg by mouth once daily. Active SUMAtriptan (IMITREX) 100 mg tablet Take 100 mg by mouth as needed for migraine headache (see administration instructions). Active Encounters Date Type Department Care Team Description 02/23/2025 Get Medical Advice Neurology [address] [place] [address] Rachelle Adkins MD Next step in plan from Last 3 Months Social History Tobacco Use Types Packs/Day Years Used Date Smoking Tobacco: Never Assessed PHQ-2 Answer Date Recorded PHQ-2 score 0 10/10/2024 Comments Unknown Sex and Gender Information Value Date Recorded Sex Assigned at Female 07/05/2024 6:16 PM EST Legal Sex Female 12:39 PM EST Gender Identity Female 07/05/2024 6:16 PM EST Sexual Orientation Straight 07/05/2024 6: 16 PM EST Last Filed Vital Signs Vital Sign Reading Time Taken Comments Blood Pressure 120/68 10/12/2024 2:03 PM EDT Pulse 70 10/12/2024 2:03 PM EDT Temperature - - Respiratory Rate - - Oxygen Saturation - - Inhaled Oxygen Concentration - - Weight 82.6 kg (182 lb 1.6 oz) 10/12/2024 2:03 P M EDT Height - - Body Mass Index - - Plan of Treatment Health Maintenance Due Date Last Done Comments Anxiety Screening 1989 Depression Screening 1989 HIV Screening 1989 Hepatitis C Screening 1989 Hepatitis B Vaccine (1 of 3 - 19+ 3-dose series) 1990 Cervical Cancer Screening 01/04/[address] Colonography 01/04/2016 Cologuard (FIT-DNA) 01/04/2016 Colonoscopy 01/04/2016 Colorectal Cancer Screening 01/04/2016 Diabetes Screening 01/04/2016 Fecal Occult Blood 01/04/2016 Lipid Screening 01/04/2016 Sigmoidoscopy 01/04/2016 Shingrix Vaccine (1 of 2) 2021 Influenza Vaccine (#1) 2025 , 05/05/2024, 03/22/2023, Additional history exists DTaP,Tdap,Td Vaccine (2 - Td or Tdap) 02/20/2029 02/20/2019 Pneumococcal Vaccine: 50+ Completed 03/22/2023 Insurance [employer] PPO TPA Care Teams Leather Whitener Relationship Specialty Start Date End Date Keo Woodruff MD PCP - General Family Medicine 05/30/14
--- OUTSIDE RECORDS SUMMARY | 2025-03-02 07:31 | XMS_ITS | Encounter Summary ---
Author Organization [facility] Address [facility] [place] [address] Care Team Providers Care I O Psychologist Name Role Phone Keo Woodruff MD Primary Care Provider [phone] Source Comments In the event this information is protected by the Federal Confidentiality of Alcohol and Drug AbusePatient Records regulations: The Federal rules restrict any use of the information to criminally investigate or prosecute any alcohol or drug abuse patient.[facility] Encounter Details Date Type Department Care Team (Late st Contact Info) Description 11/22/2024 Patient Msg Neurology [address] [place], [place] [id number] Provider, [facility] QUESTIONNAIRE Social History Tobacco Use Types Packs/Day Years [...] on filedocumented in this encounter Care Teams I O Psychologist Relationship Specialty Start Date End Date Keo Woodruff MD PCP - General Family Medicine 05/30/14 documented as of this encounter
--- OUTSIDE RECORDS SUMMARY | 2025-03-02 07:31 | XMS_ITS | Encounter Summary ---
Author Organization [facility] Address [facility] [place] [address] Care Team Providers Care Director Engineering Name Role Phone Keo Woodruff MD Primary Care Provider [phone] Source Comments In the event this information is protected by the Federal Confidentiality of Alcohol and Drug AbusePatient Records regulations: The Federal rules restrict any use of the information to criminally investigate or prosecute any alcohol or drug abuse patient.[facility] Encounter Details Date Type Department Care Team (Late st Contact Info) Description 11/17/2024 Patient Msg Neurology [address] [id number] Provider, [facility] Appointment Social History Tobacco Use Types Packs/Day Years [...] on filedocumented in this encounter Care Teams Director Engineering Relationship Specialty Start Date End Date Keo Woodruff MD PCP - General Family Medicine 05/30/14 documented as of this encounter
--- OUTSIDE RECORDS SUMMARY | 2025-03-02 07:31 | XMS_ITS | CCD ---
Author Organization [facility] CliniSy[facility] Care Team Providers Care Operations Intern Name Role Phone Ranjit Woodruff Primary Care Physician [phone] DR RANJIT WOODRUFF Primary Care Unavailable MARIOY, DR CHURCH Admitting Unavailable MARIOY, DR CHURCH Attending Unavailable MARIOY, DR CHURCH Consulting Unavailable MARIOY, DR CHURCH Primary Care Unavailable HOY, DR CHURCH Admitting Unavailable HOY, DR CHURCH Attending Unavailable HOY, DR CHURCH Consulting Unavailable JOSE A, DR CHURCH Primary Care Unavailable CHRISSY, DR FLETCHER Admitting Unavailable WEST, DR DAVID Butt Consulting Unavailable CHRISSY, DR FLETCHER Attending Unavailable ADELA, DR CORDERO Consulting Unavailable MARIOY, DR CHURCH Primary Care Unavailable HOY, DR CHURCH Admitting Unavailable HOY, DR CHURCH Attending Unavailable HOY, DR CHURCH Consulting Unavailable WEST, DR DAVID Butt Consulting Unavailable JOSE A, DR CHURCH Primary Care Unavailable HOY, DR CHURCH Admitting Unavailable HOY, DR CHURCH Attending Unavailable HOY, DR CHURCH Consulting Unavailable MARIOY, DR CHURCH Primary Care Unavailable MARIOY, DR CHURCH Admitting Unavailable MARIOY, DR CHURCH Attending Unavailable MARIOY, DR CHURCH Consulting Unavailable Ranjit Woodruff MD Primary Care Provider [phone] RANJIT WOODRUFF Primary Care Unavailable ONEIL MOHR Referring Unavailable RACHELLE ADKINS Attending Unavailable RANJIT WOODRUFF Primary Care Unavailable Sushma Chapman Attending Unavailable Sushma Chapman Admitting Unavailable Andriy ROMERO Attending Unavailable Andriy ROMERO Attending Unavailable Allergies Allergy Classification Reported Allergen(s) Allergy Type Date of Onset Reaction(s) Facility (2 sources) No Known Medication Allergies; Translations: [No Known Medication Allergies] Propensity to adverse reactions (disorder) [facility] Repository Medications Current Medications Medication Drug Class(es) Dates Sig (Normalized) Sig (Original) lisinopril 10 mg oral tablet (6 sources) Angiotensin Converting Enzyme Inhibitor Start: 01-01-2023 take 1 tablet by mouth once daily lisinopril 10 mg Tab 10 mg = 1 tab(s), Oral, Daily, Refills(s) 0 Start Date: 01/01/23 Status: Ordered SUMAtriptan 100 mg oral tablet (4 sources) Serotonin-1b and Serotonin-1d Receptor Agonist SUMAtriptan (IMITREX) 100 mg tablet Take 100 mg by mouth as needed for migraine headache (see administration instructions). Active Problems Active Problems Problem Classification Problem Date Documented Da te Episodic/Chronic Biliary tract disease (7 sources) Cholelithiasis without obstruction; Translations: [Calculus of gallbladder without cholecystitis without obstruction] Onset: 01-21-2023 Episodic Congestive heart failure; nonhypertensive (2 sources) Congestive heart failure 01-01-2023 Chronic Essential hypertension (2 sources) Hypertensive disorder 01-01-2023 Chronic Headache; including migraine (2 sources) Migraine 01-01-2023 Chronic Menopausal disorders (4 sources) Postmenopausal bleeding; Translations: [POSTMENOPAUSAL BLEEDING] Onset: 12-04-2021 Chronic Other circulatory disease (2 sources) Vascular insufficiency 01-01-2023 Episodic Other gastrointestinal disorders (2 sources) Splenomegaly 01-01-2023 Episodic Other lower respiratory disease (2 sources) Snoring; Translations: [Snoring] 10-13-2024 Episodic Other lower respiratory disease (1 source) Snoring; Translations: [Snoring] Onset: 10-12-2024 Episodic Other nutritional; endocrine; and metabolic disorders (2 sources) Body mass index 30+ - obesity 01-21-2023 Chronic Other nutritional; endocrine; and metabolic disorders (2 sources) Obesity 01-21-2023 Chronic Other screening for suspected conditions (not mental disorders or infectious disease) (5 sources) Encounter for screening mammogram for malignant neoplasm of breast; Translations: [Encounter for screening for malignant neoplasm of rectum] Onset: 07-30-2021 Episodic Ovarian cyst (3 sources) Other ovarian cyst, left side; Translations: [Cyst of ovary] Onset: 12-07-2021 01-01-2023 Episodic Residual codes; unclassified (3 sources) Amnesia; Translations: [Other amnesia] 10-13-2024 Episodic Residual codes; unclassified (1 source) Other amnesia; Translations: [Memory loss] Onset: 11-22-2024 Episodic Unclassified (3 sources) CONTACT W/AND (SUSP) EXPOS COVID-19; Translations: [CONTACT W/AND (SUSP) EXPOS COVID-19] Onset: 06-10-2021 Past or Other Problems Problem Classification Problem Date Documented Da te Episodic/Chronic Other upper respiratory infections (1 source) Acute sinusitis, unspecified; Translations: [ACUTE SINUSITIS UNSPECIFIED] Onset: 06-10-2021 Episodic Residual codes; unclassified (4 sources) Localized edema; Translations: [LOCALIZED EDEMA] Onset: 08-03-2021 Episodic Unclassified (1 source) CONTACT W/AND (SUSP) EXPOS COVID-19; Translations: [CONTACT W/AND (SUSP) EXPOS COVID-19] Onset: 06-04-2021 Results Test Name Value Interpretation Reference Range Facility PAP [id number] 02-15-2025 HPV Aptima Negative Invalid Interpretation Code Negative [facility] Comment on above: Result Comment: This nucleic acid amplification test detects fourteen high-risk HPV types (16,18,31,33,35,39,45,51,52,56,58,59,66,68) without differentiation. Performed at: [facility] [id number] MD Mary Irwin Performed at: =G [facility] [id number] MD Mary Irwin Performed By: #### 3 [id number] #### [facility] [address] [place] [address] PAP [id number] Note Invalid Interpretation Code [facility] Comment on above: Result Comment: TEST S RESULT FLAG UNITS REF RANGE LAB Clinician Provided Cytology Information Source.............Endocervix Other..............Other No. of containers..01 ThinPrep Vial DIAGNOSIS: 01 NEGATIVE FOR INTRAEPITHELIAL LESION OR MALIGNANCY. Specimen adequacy: 01 Satisfactory for evaluation. Endocervical and/or squamous metaplastic cells (endocervical component) are present. Performed by: 01 Pooja Solis, Supervisory Order Expediter ([facility]) . 01 Note: Note 01 The Pap smear is a screening test designed to aid in the detection of premalignant and malignant conditions of the uterine cervix. It is not a diagnostic procedure and should not be used as the sole means of detecting cervical cancer. Both false-positive and false-negative reports do occur. Test Methodology: Note 01 This liquid based ThinPrep(R) pap test was screened with the use of an image guided system. FLAG LEGEND: L-Low Normal,H-High Normal,LL-Alert Low,HH-Alert High <-Panic Low,>-Panic High,A-Abnormal,AA-Critical Abnormal Performed at: [address] [id number] Alida Hernandez MD, Performed By: #### 3 [id number] #### [facility] [address] [id number] PAP [id number] 02-10-2025 Collection Technique BRUSH-SPATULA Normal [facility] Comment on above: Performed By: #### 3 [id number] #### [facility] [address] [id number] Gynecological Body Site ENDOCERVIX Normal [facility] Comment on above: Performed By: #### 3 [id number] #### [facility] [address] [place] [address] Other Patient Information [id number] Normal [facility] Comment on above: Performed By: #### 3 [id number] #### [facility] [address] [place] [address] Previous Cytology Negative Normal [facility] Comment on above: Performed By: #### 3 [id number] #### [facility] [address] [place] [address] Previous Treatment NONE Normal [facility] Comment on above: Performed By: #### 3 [id number] #### [facility] [address] [place] [address] HOME SLEEP APNEA TEST (HSAT) on 11-23-2024 [facility] at [address], [facility] [address] [place] [address] ; Home Sleep Apnea Test (HSAT) Study Report Name: ALANA CRISOSTOMO Date of Study: 11/23/2024 CC#: [id number] Age: 54 (: 1970) ESS: 07/02 Neck Circ. (cm): 33.0 Height (cm): N/A Weight (kg): 82.0 BMI: N/A Referring Provider: ONEIL MOHR Mailcode: Sleep history: The patient is a 54 year old female with a history of snoring, multiple awakenings from sleep, waking up with dry mouth/sore throat, and mouth breathing. The patient is here for assessment of obstructive sleep apnea. The patient endorses being a habitual prone sleeper. Pertinent medical history: Congestive heart failure, Headaches, Hypertension Medications: Lisinopril Sleep procedure: PSG unattended Type III, minimum of 4 parameters (01809) Procedure: This study was performed using a Type III ambulatory PSG device and was unattended. The patient was instructed on proper use of the device by a registered echocardiography radiology technologist. The monitored parameters included heart rate, oxygen saturation, continuous airflow with thermistor and nasal pressure transducer, snoring via nasal pressure transducer, chest and abdominal effort, and body position. SUSY definition: Respiratory event index (SUSY), calculated as respiratory events x 60 / TRT (total recording time in minutes). Note: the apnea hypopnea index has been replaced by the respiratory event index for home sleep apnea test. Since the home sleep apnea test does not measure sleep, the SUSY is most accurate index of respiratory events. The SUSY is a surrogate of the AHI per the AASM Manual for Scoring of Sleep and Associated Events version 3. Apnea definition: The peak signal excursions drop by >90% of pre-event baseline using an oronasal thermal sensor (diagnostic study), PAP device flow (titration study) or an alternative apnea sensor (diagnostic study). The duration of the >90% drop in signal excursion is >=10 seconds. Hypopnea definition: The peak signal excursions drop by >= 30% of pre-event baseline using nasal pressure (diagnostic study), PAP device flow (titration study) or an alternative hypopnea sensor (diagnostic study). The duration of the >= 30% drop in signal excursion is >=10 seconds. There is a greater than or equal to 3% oxygen desaturation from pre-event baseline. RESPIRATORY DATA: The study started at 21:35:31 and ended at 05:18:56 and the total recording time was 463 minutes. By convention, sleep is assumed for the whole recording. Snoring was noted. There was a total of 26 respiratory events. Of these events, the total number of apneas was 11 (11 obstructive, 0 mixed, and 0 central (0.0%)) and 15 hypopneas. The central apnea index (JAIMIE) was 0.0. The respiratory event index (SUSY) was 3.4 events per hour of study time. The mean oxygen saturation during the study was 97.0%, with a minimum oxygen saturation of 90.0%. The patient spent 0.6 minutes at oxygen saturation measured less than 90% (0.1% of recording time) and 0.6 minutes at oxygen saturation measured at or less than 88% (0.1% of recording time). Time SUSY/AHI Supine 40.0 min 0.0 Off-Supine 423.5 min 3.7 Total 463.5 min 3.4 ECG DATA: The average heart rate was 67 bpm with a range of 50 bpm to 100 bpm. ICSD DIAGNOSIS: Primary Snoring [R06.83] Sleep Disorder, Unspecified [G47.9] IMPRESSION/RECOMMENDA TIONS: 1. This study neither confirms nor refutes a diagnosis of obstructive sleep apnea as HSAT does not measure certain types of respiratory events that can only be measured on an in-laboratory polysomnogram 2. Recommend an in-laboratory polysomnogram if sleep apnea remains highly suspected. INTERPRETING PHYSICIAN: Karena Butts M.D. I attest that I have performed epoch by epoch review of the entire raw data and find this study to be technically adequate. Report Digitally Signed By: KARENA BUTTS MD (11/30/2024 6:27:57 PM) SLEEP LAB No Panel Informationon 11-23 [facility] POLYSOMNOGRAM (PSG)/HOME SLE EP APNEA TEST (HSAT)on 11-23-2024 POLYSOMNOGRAM (PSG)/HOME SLEEP APNEA TEST (HSAT) [facility] at [address], [facility] [address], [place] [address] ; Home Sleep Apnea Test (HSAT) Study Report Name: ALANA CRISOSTOMO Date of Study: 11/23/2024 CC#: [id number] Age: 54 (: 1970) ESS: 07/02 Neck Circ. (cm): 33.0 Height (cm): N/A Weight (kg): 82.0 BMI: N/A Referring Provider: ONEIL MOHR Mailcode: Sleep history: The patient is a 54 year old female with a history of snoring, multiple awakenings from sleep, waking up with dry mouth/sore throat, and mouth breathing. The patient is here for assessment of obstructive sleep apnea. The patient endorses being a habitual prone sleeper. Pertinent medical history: Congestive heart failure, Headaches, Hypertension Medications: Lisinopril Sleep procedure: PSG unattended Type III, minimum of 4 parameters (17679) Procedure: This study was performed using a Type III ambulatory PSG device and was unattended. The patient was instructed on proper use of the device by a registered echocardiography radiology technologist. The monitored parameters included heart rate, oxygen saturation, continuous airflow with thermistor and nasal pressure transducer, snoring via nasal pressure transducer, chest and abdominal effort, and body position. SUSY definition: Respiratory event index (SUSY), calculated as respiratory events x 60 / TRT (total recording time in minutes). Note: the apnea hypopnea index has been replaced by the respiratory event index for home sleep apnea test. Since the home sleep apnea test does not measure sleep, the SUSY is most accurate index of respiratory events. The SUSY is a surrogate of the AHI per the AASM Manual for Scoring of Sleep and Associated Events version 3. Apnea definition: The peak signal excursions drop by >90% of pre-event baseline using an oronasal thermal sensor (diagnostic study), PAP device flow (titration study) or an alternative apnea sensor (diagnostic study). The duration of the >90% drop in signal excursion is >=10 seconds. Hypopnea definition: The peak signal excursions drop by >= 30% of pre-event baseline using nasal pressure (diagnostic study), PAP device flow (titration study) or an alternative hypopnea sensor (diagnostic study). The duration of the >= 30% drop in signal excursion is >=10 seconds. There is a greater than or equal to 3% oxygen desaturation from pre-event baseline. RESPIRATORY DATA: The study started at 21:35:31 and ended at 05:18:56 and the total recording time was 463 minutes. By convention, sleep is assumed for the whole recording. Snoring was noted. There was a total of 26 respiratory events. Of these events, the total number of apneas was 11 (11 obstructive, 0 mixed, and 0 central (0.0%)) and 15 hypopneas. The central apnea index (JAIMIE) was 0.0. The respiratory event index (SUSY) was 3.4 events per hour of study time. The mean oxygen saturation during the study was 97.0%, with a minimum oxygen saturation of 90.0%. The patient spent 0.6 minutes at oxygen saturation measured less than 90% (0.1% of recording time) and 0.6 minutes at oxygen saturation measured at or less than 88% (0.1% of recording time). Time SUSY/AHI Supine 40.0 min 0.0 Off-Supine 423.5 min 3.7 Total 463.5 min 3.4 ECG DATA: The average heart rate was 67 bpm with a range of 50 bpm to 100 bpm. ICSD DIAGNOSIS: Primary Snoring [R06.83] Sleep Disorder, Unspecified [G47.9] IMPRESSION/RECOMMENDA TIONS: 1. This study neither confirms nor refutes a diagnosis of obstructive sleep apnea as HSAT does not measure certain types of respiratory events that can only be measured on an in-laboratory polysomnogram 2. Recommend an in-laboratory polysomnogram if sleep apnea remains highly suspected. INTERPRETING PHYSICIAN: Karena Butts M.D. I attest that I have performed epoch by epoch review of the entire raw data and find this study to be technically adequate. Report Digitally Signed By: KARENA BUTTS MD (11/30/2024 6:27:57 PM) [facility] CNOVon 10-12-2024 CNOV Office Visit ([facility] ) ANDRESSAALANA Dinorah ([id number]) 1970 F Date Time Provider Department 10/12/24 2:00 PM RACHELLE ADKINS During your visit today, we recorded the following information about you: Pulse Blood pressure Weight 70/minute 120/68 82.6 kg Henri Sams MA 10/13/2024 1:21 PM Signed Alana Copeland Andressa is a 54 year old year old right handed woman Accompanied by: patient and spouse. Referral by: No referring provider defined for this encounter. 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 Pt was referred would like to get a understanding of her health Vital Signs: There were no vitals taken for this visit. Oneil Mohr APRN.CARLINE 10/13/2024 1:21 PM Signed Alana Crisostomo 1970 October 12, 2024 Referral Source: No referring provider defined for this encounter. Phone: N/A Fax: [facility] INITIAL PATIENT EVALUATION Accompanied by:spouse Identifying Information: Alana Crisostomo is a 54 year old right-handed, White, female with a past medical history of migraines, CHF, venous insufficiency of leg, HTN who presents for memory concerns. History of Present Illness: CT Brain 07/26/24 FINDINGS: No intracranial hemorrhage, extra-axial fluid collection, hydrocephalus, midline shift, or acute infarction. No other mass effect. Patent basal cisterns. No abnormal parenchymal or extra-axial enhancement. No calvarial fracture. Normal soft tissues. Paranasal sinuses and mastoid air cells are well-aerated. Onset and progression:2 years progressive short term memory loss Feels she has always had a poor memory. Forgets conversations and repeats conversations. Forgets if she closed the garage door. She has to go back to look. Some word finding difficulty. She will want to say something and it comes out slow. If it is not written down she forgets she was going to do something. 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 Some difficulties at work with trouble remembering names of people in a case. It has been apparent to coworkers. She has good notes and examples that she uses when filling out forms. Childhood injury - refrigerator fell on her head when she was 6. She has surgical mesh in her head. They were not able to do the MRI because of the mesh so she had a CT scan. Over the years her spouse has attibuted memory loss to this. The last few years her memory has worsened with repeated conversations. She has had some behavorial changes described as not having a filter. She may yell at a turret press operator if her order is not right or yell at other drivers on the road. She is more impulsive. She buys more than she should. She impulsively buys tip tickets when out at a bar and also has been binge eating. This is different than her previous behavior. She is currently going through menopause. She has hot flashes at night. She sleeps 5-6/hrs. Feels tired in the mrning. So busy at work she forgets she is tired. Snores and sometimes gasps and wakes up during the night. Restless sleeper but no dream enactment behavior. Will take short naps on the weekend. Living Arrangement / Ability to function: Alana Crisostomo currently resides with spouse in their home ADLs: independent Driving:independent - she has forgotten where she is going a few times. Finances:she does together with spouse Medications: independent but needed to buy a pill box to help her remember Cooking:n/a Cell phone: no trouble Family History: The patient family history is not on file. The patient has no family status information on file. Family history of dementia:father parkinson's disease dementia Family history of movement disorder:parkinson's disease Social History: Education:1 year college Occupation:[employer] 1 son 20 years old has no history on file for tobacco use. Alcohol Use: Not on file has no history on file for drug use. POA: Unknown Past Medical History: The patient has no past medical history on file. Is there a history of traumatic brain injury? yes Past Surgical History: The patient has no past surgical history on file. Allergies: ALLERGIES Not on File Medications: No current outpatient medications on file prior to visit. No current facility-administered medications on file prior to visit. Physicians: PMD: Ranjit Woodruff MD Patient-Entered Data: Patient-Reported 10/10/2024 -- Where are you currently living? Home / Private residence Are you using any community resources to help care for yourself? No Has your caregiver accompanied you today? No Did you receive help completing this questionnaire? No If you received help, could you have completed t (more content not included)... Normal [facility] MG MAMM SCREEN 3D MASHA CADon 12-04-2021 MG MAMM SCREEN 3D MASHA CAD Patient: ALANA CRISOSTOMO. Exam Date: 12/04/2021 : 1970 Gender:F Ordering : DR SUSHMA CHAPMAN [facility] Admission #: [id number] Family : DR JUSTINE LOWE M.D. Order #: [id number] CLICK HERE TO VIEW EXAM RADIOLOGY REPORT PROCEDURE: MAMMOGRAM SCREENING 3D BILATERAL CAD COMPARISON: MG MAMM RT DIAG W CAD, 04/26/2011. MG MAMM SCREEN MASHA W CAD, 12/08/2018. INDICATIONS: Screening mammography Calculator Name NCI Breast Cancer Risk Assessment Tool 5 Year Breast Cancer Risk 1.50% Lifetime Breast Cancer Risk 13.30% Personal Breast Cancer No Personal Ovarian Cancer No Treatments None Family Cancers None LOCATION: [facility] BREAST COMPOSITION: Heterogeneously dense,which may obscure small masses. FINDINGS: DIAGNOSTIC CATEGORY 2--BENIGN FINDING: Scattered benign-appearing nodules are present. Scattered benign-appearing calcifications are present. Scattered benign-appearing lymph nodes are present. RIGHT BREAST: No significant suspicious finding. Stable cluster of microcalcifications lower inner quadrant. LEFT BREAST: No significant suspicious finding. RECOMMENDATIONS: ROUTINE MAMMOGRAM AND CLINICAL EVALUATION IN 12 MONTHS. PLEASE NOTE: A NORMAL MAMMOGRAM DOES NOT EXCLUDE THE POSSIBILITY OF BREAST CANCER. A CLINICALLY SUSPICIOUS PALPABLE LUMP SHOULD BE BIOPSIED. Dictated by: David Gill MD on 12/04/2021 at 12:19 Approved by: David Gill MD on 12/04/2021 at 12:24 Normal [facility] US PELVIS AND TRANSVAGon US PELVIS AND TRANSVAG EXAMINATION: US PELVIS AND TRANSVAG HISTORY: Postmenopausal bleeding COMPARISON: No relevant comparison available. FINDINGS: Transabdominal and transvaginal images Uterus is enlarged in size measuring 10.2 x 5.4 x 4.5 cm. Multiple heterogeneous myometrial masses the 3 largest measure 2.8 x 2.3 x 2.1 cm, 3.3 x 2.8 x 1.9 cm and 2.3 x 2.1 x 1.8 cm. The uterus is anteflexed. The endometrium measures 2 mm, within. Areas of anechoic echogenicity in the cervix, nabothian cysts The right ovary measures 2.5 x 1.6 x 1.7 cm. Normal color Doppler flow. Scattered areas of hyperechogenicity likely nonspecific calcifications The left ovary is asymmetrically enlarged measuring 4.7 x 2.7 x 2.6 cm containing an area of anechoic echogenicity measuring 3.7 x 3.6 x 2.0 cm, simple cyst. IMPRESSION: Enlarged uterus containing multiple masses. Fibroids are favored possibly accounting for the patient's symptoms 3.7 cm left ovarian simple cyst Electronically authenticated by: DAVID GILL Date: 2021-12-04 17:09 Normal [facility] VC VENOUS REFLUX MASHA LMTon 0 08-03-2021 VC VENOUS REFLUX MASHA LMT Patient: ALANA CRISOSTOMO Exam Date: 08/03/2021 : 1970 Gender:F Ordering : DR RANJIT WOODRUFF . Admission #: [id number] Family : Order #: [id number] CLICK HERE TO VIEW EXAM RADIOLOGY REPORT PROCEDURE: VEIN CENTER ULTRASOUND VENOUS REFLUX BILATERAL LIMTED COMPARISON: None. INDICATIONS: Localized edema TECHNIQUE: Duplex imaging of the lower extremity to assess the deep and superficial venous system for the presence of deep or superficial venous incompetence and to document the location and severity of disease. The study includes evaluation of the great saphenous vein (GSV), anterior accessory saphenous vein (AASV) and small saphenous vein (SSV). Patient scanned in reverse Trendelenburg and standing. FINDINGS: RIGHT LOWER EXTREMITY: Saphenofemoral Junction Reflux: Yes 6.7mm 1.5 sec GSV: Diam (mm) Reflux/ Time (sec) Proximal Thigh 6.2 No Mid Thigh 3.3 No Distal Thigh 3.4 No Prox Calf 2.6 No Mid Calf 3.1 Yes 0.6 Saphenopopliteal Junction Reflux: 4.0mm No SSV: Proximal Calf 3.2 No Mid Calf 3.0 No AASV: Proximal Thigh 3.0 No Mid Thigh 4.0 Yes 0.4 Distal Thigh Thrombi: None. Compressibility: Normal. Flow: Normal. Preforator: Proximal calf research worker kitchen measures 3.1 mm. Tech Note: Incompetent varicose vein mid calf posterior off of research worker kitchen measures 2.1 mm with 1.0 seconds of reflux. Medial right proximal calf varicose vein measures 2.4 mm with 0.5 seconds of reflux. LEFT LOWER EXTREMITY: Saphenofemoral Junction Reflux: Yes 6.8 mm 0.6 sec GSV: Diam (mm) Reflux/Time (sec) Proximal Thigh 5.6 Yes 0.8 Mid Thigh 4.1 No Distal Thigh 2.9 No Prox Calf 2.1 No Mid Calf 2.6 No Saphenopopliteal Junction Relux: 5.6 mm Yes 0.6 SSV: Proximal Calf 7.5 Yes 0.6 Mid Calf 4.2 No AASV: Proximal Thigh 3.0 No Mid Thigh 3.0 No Distal Thigh Thrombi: None. Compressibility: Normal. Flow: Normal. Leather Splitter: None. Tech Note: Epigastric vein measures 3.6 mm, no reflux visualized. Incompetent varicose vein distal medial thigh off GSV measures 2.7 mm with 0.6 seconds of reflux. CONCLUSION: 1. Minimal reflux bilateral great saphenous veins 2. Minimal reflux left small saphenous vein 3. Minimal reflux in small bilateral varicose veins Dictated by: David Gill MD on 08/03/2021 at 10:02 Approved by: David Gill MD on 08/03/2021 at 10:19 Normal [facility] OCC BLD IMMUNO SCREENon 07-11 OCCULT BLOOD Negative Normal NEGATIVE [facility] Comment on above: Performed By: #### O BSCRN #### [facility] [address] [place] [address] Dr. Carla Burgos INSULINon 07-20-2021 Insulin 8.4 uIU/mL Normal 2.6-24.9 [facility] Comment on above: Performed By: #### I NSULIN #### [facility] [address] [place] [address] Dr. Carla Burgos BNPon 07-19-2021 Natriuretic peptide B (Bld) [Mass/Vol] 44.0 pg/mL Normal <=900.0 [facility] Comment on above: Performed By: #### I NFLUAB #### [facility] [address] [place] [address] Dr. Carla Burgos CBC AUTO DIFFon 07-19-2021 BASO # 0.1 103/ul Normal 0.0-0.1 [facility] Comment on above: Performed By: #### C BC #### [facility] [address] [place] [address] Dr. Carla Burgos Basophils/100 WBC (Bld) 0.9 % Normal 0.2-2.0 [facility] Comment on above: Performed By: #### C BC #### [facility] [address] [place] [address] Dr. Carla Burgos EO # 0.2 103/ul Normal 0.0-0.7 [facility] Comment on above: Performed By: #### C BC #### [facility] [address] [place] [address] Dr. Carla Burgos Eosinophils/100 WBC (Bld) 1.9 % Normal 0.9-7.0 [facility] Comment on above: Performed By: #### C BC #### [facility] [address] [place] [address] Dr. Carla Burgos Erythrocyte distribution width (RBC) [Ratio] 13.2 % Normal 11.0-15.0 [facility] Comment on above: Performed By: #### C BC #### [facility] [address] [place] [address] Dr. Carla Burgos Hematocrit (Bld) [Volume fraction] 39.6 % Normal 36.0-48.0 [facility] Comment on above: Performed By: #### C BC #### [facility] [address] [place] [address] Dr. Carla Burgos Hemoglobin (Bld) [Mass/Vol] 13.7 g/dL Normal 12.0-16.0 [facility] Comment on above: Performed By: #### C BC #### [facility] [address] [place] [address] Dr. Carla Burgos IG # 0.02 10e3/ul Normal 0.00-0.03 [facility] Comment on above: Performed By: #### C BC #### [facility] [address] [place] [address] Dr. Carla Burgos IG % 0.2 % Normal 0.0-0.5 [facility] Comment on above: Performed By: #### C BC #### [facility] [address] [place] [address] Dr. Carla Burgos LYMPH # 2.1 103/ul Normal 1.2-3.8 [facility] Comment on above: Performed By: #### C BC #### [facility] [address] [place] [address] Dr. Carla Burgos Lymphocytes/100 WBC (Bld) 25.0 % Normal 20.5-60.0 [facility] Comment on above: Performed By: #### C BC #### [facility] [address] [place] [address] Dr. Carla Burgos MANUAL DIFF REQ NO Normal [facility] Comment on above: Performed By: #### C BC #### [facility] [address] [place] [address] Dr. Carla Burgos MCH (RBC) [Entitic mass] 29.7 pg Normal 26.7-34.0 [facility] Comment on above: Performed By: #### C BC #### [facility] [address] [place] [address] Dr. Carla Burgos MCHC (RBC) [Mass/Vol] 34.6 g/dL Normal 29.9-35.2 [facility] Comment on above: Performed By: #### C BC #### [facility] [address] [place] [address] Dr. Carla Burgos MCV (RBC) [Entitic vol] 85.9 fL Normal 81.0-99.0 [facility] Comment on above: Performed By: #### C BC #### [facility] [address] [place] [address] Dr. Carla Burgos MONO # 0.4 103/ul Normal 0.3-0.8 [facility] Comment on above: Performed By: #### C BC #### [facility] [address] [place] [address] Dr. Carla Burgos Monocytes/100 WBC (Bld) 4.4 % Normal 1.7-12.0 [facility] Comment on above: Performed By: #### C BC #### [facility] [address] [place] [address] Dr. Carla Burgos NEUT # 5.7 103/ul Normal 1.4-6.5 [facility] Comment on above: Performed By: #### C BC #### [facility] [address] [place] [address] Dr. Carla Burgos Neutrophils/100 WBC (Bld) 67.6 % Normal 43.0-75.0 [facility] Comment on above: Performed By: #### C BC #### [facility] [address] [address] [address] Carla Burgos Platelet mean volume (Bld) [Entitic vol] 11.5 fL Normal 9.5-13.5 [facility] Comment on above: Performed By: #### C BC #### [facility] [address] [address] [address] Carla Burgos PLT 214 103/ul Normal 150-450 [facility] Comment on above: Performed By: #### C BC #### [facility] [address] [place] [address] Dr. Carla Burgos RBC 4.61 106/ul Normal 4.20-5.40 [facility] Comment on above: Performed By: #### C BC #### [facility] [address] [place] [address] Dr. Carla Burgos WBC 8.5 103/ul Normal 4.0-11.0 [facility] Comment on above: Performed By: #### C BC #### [facility] [address] [place] [address] Dr. Carla Burgos FREE THYROXINE INDEX T7on FTI 2.85 Normal [facility] Comment on above: Performed By: #### I NFLUAB #### [facility] [address] [place] [address] Dr. Carla Burgos T3U 31.0 % Normal 23.5-40.5 [facility] Comment on above: Performed By: #### I NFLUAB #### [facility] [address] [place] [address] Dr. Carla Burgos T4 [Mass/Vol] 9.20 ug/dL Normal 5.53-11.00 [facility] Comment on above: Performed By: #### I NFLUAB #### [facility] [address] [place] [address] Dr. Carla Burgos GLYCOHEMOGLOBIN A1Con 2021 ADA RECOMMENDATION ADA THERAPEUTIC TARGET 6.0 - 7.0 ACTION SUGGESTED > 7.0 Normal [facility] Comment on above: Performed By: #### I NFLUAB #### [facility] [address] [address] [address] Carla Burgos Glucose [Mass/Vol] 117 mg/dL Normal [facility] Comment on above: Performed By: #### I NFLUAB #### [facility] [address] [place] [address] Dr. Carla Burgos HbA1c (Bld) [Mass fraction] 5.7 % Normal <=6.0 [facility] Comment on above: Performed By: #### I NFLUAB #### [facility] [address] [place] [address] Dr. Carla Burgos IRONon 07-19-2021 Iron [Mass/Vol] 75.0 ug/dL Normal 37.0-170.0 [facility] Comment on above: Performed By: #### I PASHA #### [facility] [address] [place] [address] Dr. Carla Burgos LIPID PROFILEon 07-19-2021 CHOL-HDL RATIO NORM SEE BELOW Normal [facility] Comment on above: Result Comment: 3.3 - 4.4 LOW RISK 4.4 - 7.1 AVERAGE RISK 7.1 - 11.0 MODERATE RISK >11.0 HIGH RISK Performed By: #### I NFLUAB #### [facility] [address] [place] [address] Dr. Carla Burgos Cholesterol [Mass/Vol] 157 mg/dL Normal <=200 [facility] Comment on above: Performed By: #### I NFLUAB #### [facility] [address] [place] [address] Dr. Carla Burgos Cholesterol in HDL [Mass/Vol] 63 mg/dL Normal [facility] Comment on above: Performed By: #### I NFLUAB #### [facility] [address] [place] [address] Dr. Carla Burgos Cholesterol in LDL [Mass/Vol] 80.0 mg/dL Normal [facility] Comment on above: Performed By: #### I NFLUAB #### [facility] [address] [place] [address] Dr. Carla Burgos Cholesterol.total/Ch olesterol in HDL [Mass ratio] 2.5 {ratio} Normal [facility] Comment on above: Performed By: #### I NFLUAB #### [facility] [address] [address] [address] Carla Burgos HDL NORMAL > or = 60 mg/dl - LO W CARDIOVASCULAR RISK <40 mg/dl - HIGH CARDIOVASCULAR RISK Normal [facility] Comment on above: Performed By: #### I NFLUAB #### [facility] [address] [address] [address] Carla Burgos LDL CALC NORMAL SEE BELOW Normal [facility] Comment on above: Result Comment: <100 mg/dl OPTIMAL 100 - 129 mg/dl NEAR OR ABOVE OPTIMAL 130 - 159 mg/dl BORDERLINE HIGH 160 - 189 mg/dl HIGH >190 mg/dl VERY HIGH Performed By: #### I NFLUAB #### [facility] [address] [place] [address] Dr. Carla Burgos Triglyceride [Mass/Vol] 70 mg/dL Normal <=150 [facility] Comment on above: Performed By: #### I NFLUAB #### [facility] [address] [address] [address] Carla Burgos VLDL CALC 14.0 mg/dL Normal [facility] Comment on above: Performed By: #### I NFLUAB #### [facility] [address] [address] [address] Carla Burgos PROF 14(COMP METB)on 022 Albumin [Mass/Vol] 3.6 g/dL Normal 3.5-5.0 [facility] Comment on above: Performed By: #### I NFLUAB #### [facility] [address] [address] [address] Carla Burgos Albumin/Globulin [Mass ratio] 1.2 {ratio} Normal [facility] Comment on above: Performed By: #### I NFLUAB #### [facility] [address] [address] [address] Carla Burgos ALP [Catalytic activity/Vol] 66 U/L Normal 38-126 [facility] Comment on above: Performed By: #### I NFLUAB #### [facility] [address] [address] [address] Carla Burgos ALT [Catalytic activity/Vol] 24 U/L Normal 9-52 [facility] Comment on above: Performed By: #### I NFLUAB #### [facility] [address] [address] [address] Carla Burgos Anion gap [Moles/Vol] 11.6 mmol/L Normal [facility] Comment on above: Performed By: #### I NFLUAB #### [facility] [address] [address] [address] Carla Burgos AST [Catalytic activity/Vol] 11 U/L Critically low 14-36 [facility] Comment on above: Performed By: #### I NFLUAB #### [facility] [address] [place] [address] Dr. Carla Burgos Bilirubin [Mass/Vol] 0.5 mg/dL Normal 0.2-1.3 [facility] Comment on above: Performed By: #### I NFLUAB #### [facility] [address] [address] [address] Carla Burgos Calcium [Mass/Vol] 8.9 mg/dL Normal 8.4-10.2 [facility] Comment on above: Performed By: #### I NFLUAB #### [facility] [address] [place] [address] Dr. Carla Burgos Chloride [Moles/Vol] 107 mmol/L Normal 98-107 [facility] Comment on above: Performed By: #### I NFLUAB #### [facility] [address] [address] [address] Carla Burgos CO2 [Moles/Vol] 26.4 mmol/L Normal 22.0-30.0 [facility] Comment on above: Performed By: #### I NFLUAB #### [facility] [address] [address] [address] Carla Burgos Creatinine [Mass/Vol] 0.55 mg/dL Normal 0.52-1.04 [facility] Comment on above: Performed By: #### I NFLUAB #### [facility] [address] [address] [address] Carla Burgos EGFR-AF URUGUAYAN >60 Normal >=60 [facility] Comment on above: Performed By: #### I NFLUAB #### [facility] [address] [address] [address] Carla Burgos EGFR-NON AF URUGUAYAN >60 Normal >=60 [facility] Comment on above: Performed By: #### I NFLUAB #### [facility] [address] [address] [address] Carla Burgos Globulin (S) [Mass/Vol] 2.9 g/dL Normal [facility] Comment on above: Performed By: #### I NFLUAB #### [facility] [address] [place] [address] Dr. Carla Burgos Glucose [Mass/Vol] 105 mg/dL Normal 74-106 [facility] Comment on above: Performed By: #### I NFLUAB #### [facility] [address] [place] [address] Dr. Carla Burgos Potassium [Moles/Vol] 4.0 mmol/L Normal 3.4-5.0 [facility] Comment on above: Performed By: #### I NFLUAB #### [facility] [address] [place] [address] Dr. Carla Burgos Protein [Mass/Vol] 6.5 g/dL Normal 6.1-8.2 [facility] Comment on above: Performed By: #### I NFLUAB #### [facility] [address] [address] [address] Carla Burgos Sodium [Moles/Vol] 141 mmol/L Normal 137-145 [facility] Comment on above: Performed By: #### I NFLUAB #### [facility] [address] [address] [address] Carla Burgos Urea nitrogen [Mass/Vol] 11.0 mg/dL Normal 7.0-17.0 [facility] Comment on above: Performed By: #### I NFLUAB #### [facility] [address] [place] [address] Dr. Carla Burgos Urea nitrogen/Creatinine [Mass ratio] 20.0 mg/mg Normal [facility] Comment on above: Performed By: #### I NFLUAB #### [facility] [address] [place] [address] Dr. Carla Burgos TSHon 07-19-2021 TSH 1.322 uIU/mL Normal 0.470-4.680 [facility] Comment on above: Performed By: #### I NFLUAB #### [facility] [address] [place] [address] Dr. Carla Burgos TSH RANGE SEE BELOW Normal [facility] Comment on above: Result Comment: <0.3 4 UIU/ml HYPERTHYROID 0.34-5.60 UIU/ml EUTHYROID >5.60 UIU/ml HYPOTHYROID Performed By: #### I NFLUAB #### [facility] [address] [place] [address] Dr. Carla Burgos [facility]10 SARS-CoV-2 (COVID-19) RNA ARY+probe Ql (Unsp spec) Not detected Normal NOT DETECTED [facility] Comment on above: Result Comment: This test is not yet approved or cleared by the [place] FDA. When there are no FDA-approved or cleared tests available, and other criteria are met, FDA can make tests available under an emergency access mechanism called an Emergency Use Authorization (EUA). The EUA for this test is supported by the Chronic Disease Manager of Health and Human Service's (HHS's) declaration that circumstances exist to justify the emergency use of in vitro diagnostics for the detection and/or diagnosis of the virus that causes COVID-19. This EUA will remain in effect (meaning this test can be used) for the duration of the COVID-19 declaration justifying emergency of IVDs, unless it is terminated or revoked by FDA (after which the test may no longer be used). When diagnostic testing is negative, the possibility of a false negative should be considered in the context of a patient's recent exposures and the presence of clinical signs and symptoms consistent with SARS-CoV-2. Performed By: #### C VDTBH #### [facility] [address] [place] [address] Dr. Carla Burgos INFLUENZA A AND B AGon 06-04 [facility] SEE BELOW Normal [facility] Comment on above: Result Comment: Nega tive for Flu A protein angiten. Infection due to Flu A cannot be ruled out. Flu A angiten in the sample may be below the detection limit of the test. Performed By: #### I NFLUAB #### [facility] [address] [place] [address] Dr. Carla Burgos INFLUBNEG SEE BELOW Normal [facility] Comment on above: Result Comment: Nega tive for Flu B protein antigen. Infection due to Flu B cannot be ruled out. Flu B antigen in the sample may be below the detection limit of the test. Performed By: #### I NFLUAB #### [facility] [address] [place] [address] Dr. Carla Burgos INFLUENZA A AG Negative Normal NEGATIVE SEE COMMENT [facility] Comment on above: Performed By: #### I NFLUAB #### [facility] [address] [place] [address] Dr. Carla Burgos INFLUENZA B AG Negative Normal NEGATIVE SEE COMMENT [facility] Comment on above: Performed By: #### I NFLUAB #### [facility] [address] [place] [address] Dr. Carla Burgos INTERNAL CONTROLS Within Normal Limits Normal Wi thin Normal Limits [facility] Comment on above: Performed By: #### I NFLUAB #### [facility] [address] [place] [address] Dr. Carla Burgos [facility]on SARS-CoV-2 (COVID-19) RNA ARY+probe Ql (Unsp spec) Not detected Normal NOT DETECTED [facility] Comment on above: Result Comment: This test is not yet approved or cleared by the [place] FDA. When there are no FDA-approved or cleared tests available, and other criteria are met, FDA can make tests available under an emergency access mechanism called an Emergency Use Authorization (EUA). The EUA for this test is supported by the Chronic Disease Manager of Health and Human Service's (HHS's) declaration that circumstances exist to justify the emergency use of in vitro diagnostics for the detection and/or diagnosis of the virus that causes COVID-19. This EUA will remain in effect (meaning this test can be used) for the duration of the COVID-19 declaration justifying emergency of IVDs, unless it is terminated or revoked by FDA (after which the test may no longer be used). When diagnostic testing is negative, the possibility of a false negative should be considered in the context of a patient's recent exposures and the presence of clinical signs and symptoms consistent with SARS-CoV-2. Performed By: #### C [facility] #### [facility] [address] [place] [address] Dr. Carla Burgos Vital Signs Date Time Vital Sign Value Performing Clinician Ezio red 10-12-2024 14:03-0400 Body weight 82.6 kg Rachelle Adkins MD Work Phone: [facility] 10-12-2024 14:03-0400 Diastolic blood pressure 68 mm[Hg] Rachelle Adkins MD Work Phone: [facility] 10-12-2024 14:03-0400 Heart rate 70 /min Rachelle Adkins MD Work Phone: [facility] 10-12-2024 14:03-0400 Systolic blood pressure 120 mm[Hg] Rachelle Adkins MD Work Phone: [facility] 01-21-2023 10:05-0400 Blood Pressure Location Andriy ROMERO [facility] [place] 01-21-2023 10:05-0400 Diastolic blood pressure 96 mm[Hg] Andriy ROMERO [facility] [place] 01-21-2023 10:05-0400 Heart rate 62 /min Andriy ROMERO [facility] [place] 01-21-2023 10:05-0400 Respiratory rate 16 /min Andriy ROMERO [facility] [place] 01-21-2023 10:05-0400 Systolic blood pressure 153 mm[Hg] Andriy NILL [facility] [place] Encounters Encounter Date Encounter Type Care Provider Facility Start: 03-24-2025 ambulatory Andriy R NILL Facility : [place] Start: 03-23-2025 ambulatory Andriy R NILL Facility : [place] Start: 02-23-2025 End: 02-23-2025 ambulatory Rachelle Adkins MD Work Phone: Neurology Comment on above: Next step in plan Start: 02-10-2025 End: 02-10-[address] [place] [place] Start: 11-23-2024 End: 11-23-2024 Patient encounter procedure [facility] Work Phone: Neurology Comment on above: Memory loss Start: 11-22-2024 End: 11-23-2024 ambulatory RANJIT Copeland MARIOMikey Facility:[facility] Start: 11-11-2024 End: 11-25-2024 [facility] Work Phone: Neurology Start: 10-12-2024 End: 10-12-2024 Patient encounter procedure Rachelle Adkins MD Work Phone: Neurology Comment on above: Memory loss (Primary Dx); Snoring Start: 10-12-2024 End: 10-12-2024 ambulatory RACHELLE ADKINS Facility:[facility] Start: 02-19-2023 End: 02-19-2023 Patient encounter procedure Andriy R NILL [facility] [place] Start: 01-21-2023 End: 01-21-2023 Patient encounter procedure Andriy R NILL [facility] [place] Start: 01-02-2022 End: 01-02-2022 Lab Drop off Justine Lowe [facility] Start: 12-04-2021 End: 12-05-[address] RANJIT WOODRUFF Facility:[facility] Start: 11-26-2021 End: 11-26-2021 Lab Drop off Sushma Chapman [facility] Start: 08-03-2021 End: 08-04-2021 ambulatory DR RANJIT WOODRUFF Facility:[facility]1 Start: 07-30-2021 End: 07-30-[address] RANJIT WOODRUFF Facility:[facility] Start: 07-24-2021 Encounter for genera l adult medical examination without abnormal findings DR RANJIT WOODRUFF [facility] Start: 07-19-2021 End: 07-20-[address] RANJIT WOODRUFF Facility:[facility] Start: 07-19-2021 End: 07-20-2021 Encounter for general adult medical examination without abnormal findings DR RANJIT WOODRUFF Facility:[facility] Start: 06-04-2021 End: 06-04-[address] RANJIT WOODRUFF Facility:[facility] Start: 03-13-2021 End: 03-13-[address] RANJIT WOODRUFF Facility:[facility] Procedures Date Procedure Procedure Detail Performing Clinician Start: 11-23-2024 Sleep std airflow hr t rate&o2 sat effort unatt Oneil Mohr APRN.CNP Work Phone: Start: 02-12-2023 Laparoscopic cholecystectomy Andriy ROMERO section Andriy Cornell Cranioplasty Andriy ROMERO Dilation and curettage Rafat ROMERO Endometrial ablation Andriy ROMERO Extraction of wisdom tooth Dinorah rosen NICK Plan of Treatment Date Care Activity Detail Author Start: 02-20-2029 Urine microalbumin profile DTaP,Tdap,Td Vaccine (2 - Td or Tdap) [facility] Start: 02-07-2025 Influenza vaccination Influenza Vacc ine (#1) [facility] Start: 02-08-2024 Covid-19 Vaccine ( season) Covid-19 Vaccine ( season) [facility] Start: 2021 Shingrix Vaccine (1 of 2) Shingrix Vaccine (1 of 2) [facility] Start: 01-04-2016 Diabetes Screening Diabetes Screenin g [facility] Start: 01-04-2016 Lipid panel Lipid Screening [facility] Start: 01-04-2016 Screening for malign ant neoplasm of colon [facility] Start: 2011 Screening for malign ant neoplasm of breast Mammogram Screening [facility] Start: 01-04-1992 Screening for malign ant neoplasm of cervix Cervical Cancer Screening [facility] Start: 1990 Hepatitis B Vaccine (1 of 3 - 19+ 3-dose series) Hepatitis B Vaccine (1 of 3 - 19+ 3-dose series) [facility] Start: 1989 Anxiety Screening Anxiety Screening [facility] Start: 1989 Depression Screening Depression Scre ening [facility] Start: 1989 Hepatitis C screening Hepatitis C Sc reening [facility] Start: 1989 HIV screening HIV Screening [facility] End: 10-12-2025 HOME SLEEP APNEA TEST (HSAT) HOME SLEEP APNEA TEST (HSAT) Procedures Routine Memory loss 1 Occurrences starting 10/12/2024 until 10/12/2025 [facility] Work Phone: Comment on above: 1 Occurrences starti ng 10/12/2024 until 10/12/2025 Immunizations Immunization Date Immunization Notes Care Provider Fa cility 06-12-2024 influenza virus vaccine, unspecified formulation Rachelle Adkins MD Work Phone: [facility] 04-13-2022 influenza virus vaccine, unspecified formulation Andriy ROMERO [facility] 09-19-2020 SARS-CoV-2 (COVID-19 ) mRNA BNT-162b2 vax Andriy ROMERO [facility] [place] 08-28-2020 SARS-CoV-2 (COVID-19 ) mRNA BNT-162b2 zoe ROMERO [facility] [place] Payers Date Payer Category Payer Private Health Insurance [id number] 2024 Private Health Insurance [id number] 2023 Private Health Insurance [id number] 2023 Private Health Insurance [id number] 1971 Unknown [id number] 2.16.84 [id number] 1971 Unknown [id number] 2.16.84 [id number] 1971 Unknown [id number] 2.16.84 [id number] 1971 Unknown [id number] 2.16.84 [id number] 1971 Unknown [id number] 2.16.84 [id number] 1971 Unknown [id number] 2.16.84 [id number] 1971 Unknown [id number] 2.16.8 [id number] 1971 Unknown [id number] 2.16.8 [id number] 1971 Unknown [id number] 2.16.8 [id number] 1971 Unknown [id number] 2.16.8 [id number] 1959 Private Health Insurance [id number] 1959 Private Health Insurance [id number] Private Health Insurance [id number] Social History Date Type Detail Facility Tobacco smoking status No Smokin g Status Entered [facility] Start: 10-10-2024 Sex Assigned At Female F [facility] Start: 01-21-2023 Tobacco smoking status Never s moked tobacco (finding) [facility] Start: 05-30-2014 Tobacco smoking status Never [facility] Tobacco smoking stat [facility] Tobacco smoking consumption unknown [facility] Start: 10-10-2024 History of Social function [facility] Start: 1970 Sex assigned at Female C [facility] Start: 07-05-2024 Gender identity Identifies as female gender (finding) [facility] Start: 07-05-2024 Sexual orientation Heterosexual (fin flash) [facility] Functional Status Date Assessment Result Facility 01-21-2023 Functional Status N/A [facility] Clinical Notes 11-24-2021 to 11-25-2024 Ragini Prince - 11/25/2024 12:25 PM EDNelly Solis - 11/22/2024 1:59 PM Chase Jose - 11/19/2024 3:16 PM Rafiq Izaguirre APRN.CIRCULATION MAN - 11/12/2024 7:49 AM EDT Note Date & Type Note Facility 11-25-2024 Note HNO ID: [id number] Author: ?, ?, ? Service: ? Author Type: ? Type: Progress Notes Filed: 11/25/2024 12:36 Note Text: Sleep Study Check-In Documentation Date: November 25, 2024 Name: Alana Cirsostomo Comments: HST was returned in working order with all sleep questionnaires Ragini Prince [facility] 11-25-2024 History of Presen t illness Narrative Sleep Study Check-In Documentation Date: November 25, 2024 Name: Alana Crisostomo Comments: HST was returned in working order with all sleep questionnaires Ragini Prince Nomad # [id number] , date shipped out 11-22-24 FED EX ONLY Tracking mailout: [id number] Tracking return: [id number] LIZAEX (TEMP) CONFIRMED - 11/19/24-LSS November 12, 2024 Standing PSG Orders signed in the last 90 days None Future PSG Orders signed in the last 90 days Ordered Auth. provider HOME SLEEP APNEA TEST (HSAT) [[id number]] 10/12/24 Oneil oMhr APRN.CIRCULATION MAN Assoc. diagnoses: Memory loss [R41.3] Q: Indications: A: Obstructive sleep apnea Q: STOP-BANG conditions - Select All That Apply: A: AGE > 50 A2: SNORING that is loud or disruptive A3: TIREDNESS, fatigue or sleepiness during the day A4: OBSERVED sleep apnea Q: Current use of supplemental oxygen during sleep period?: A: No All Prior Sleep Studies (past 365 days) 10/12/2024 15:51 Sleep Studies HOME SLEEP APNEA TEST (HSAT) HOME SLEEP APNEA TEST (HSAT) Order Status: Ordered, Future Expires: 10/12/25 BMI Readings from Last 2 Encounters: No data found for BMI No past medical history on file. The medical record was reviewed to determine if the proposed sleep study conforms to the AASM Practice Parameters for the Indications for Polysomnography and Related Procedures, or if the sleep study is indicated for other reasons. Indications for study: KAILEE suspected without comorbid medical or sleep disorders Sleep study to be performed: Home Sleep Apnea Test (HSAT) Special instructions: None-follow laboratory protocol Mary Skinner --- Sleep Medicine Staff Note: I have read the above protocol, edited as needed, and agree to the plan. Rafiq Whitlock APRN.CIRCULATION MAN 2:16 PM, 11/12/2024 November 11, 2024 An order has been received for Home Sleep Apnea Test (HSAT) from Oneil Duran a B. [facility] Staff. Visit prep complete. Comments :No The sleep study is scheduled for 11/23. Insurance: Payor: CIGNA / Plan: CIGNA PPO TPA / Product Type: PPO / Payer/Plan Subscr Sex Relation Sub. Ins. ID Effective Group Num 1. CIGNA - CIGNA* HARMAN CRISOSTOMO 02/25/1962 Male Spouse [id number] 06/09/23 [address]N [id number] [place] documented in this encounter [facility] 11-22-2024 Note HNO ID: [id number] Author: ?, ?, ? Service: ? Author Type: ? Type: Progress Notes Filed: 11/25/2024 12:36 Note Text: Nomad # [id number] , date shipped out 11-22-24 FED EX ONLY Tracking mailout: [id number] Tracking return: [id number] [facility] 11-19-2024 Note HNO ID: [id number] Author: ?, ?, ? Service: ? Author Type: ? Type: Progress Notes Filed: 11/25/2024 12:36 Note Text: FEDEX (TEMP) CONFIRMED - 11/19/24-LSS [facility] 11-12-2024 Note HNO ID: [id number] Author: RAFIQ WHITLOCK APRN.CIRCULATION MAN Service: ? Author Type: Nurse Practitioner Type: Progress Notes Filed: 11/25/2024 12:36 Note Text: November 12, 2024 Standing PSG Orders signed in the last 90 days None Future PSG Orders signed in the last 90 days Ordered Auth. provider HOME SLEEP APNEA TEST (HSAT) [[id number]] 10/12/24 Oneil Mohr APRN.CIRCULATION MAN Assoc. diagnoses: Memory loss [R41.3] Q: Indications: A: Obstructive sleep apnea Q: STOP-BANG conditions - Select All That Apply: A: AGE > 50 A2: SNORING that is loud or disruptive A3: TIREDNESS, fatigue or sleepiness during the day A4: OBSERVED sleep apnea Q: Current use of supplemental oxygen during sleep period?: A: No All Prior Sleep Studies (past 365 days) 10/12/2024 15:51 Sleep Studies HOME SLEEP APNEA TEST (HSAT) HOME SLEEP APNEA TEST (HSAT) Order Status: Ordered, Future Expires: 10/12/25 BMI Readings from Last 2 Encounters: No data found for BMI No past medical history on file. The medical record was reviewed to determine if the proposed sleep study conforms to the AASM Practice Parameters for the Indications for Polysomnography and Related Procedures, or if the sleep study is indicated for other reasons. Indications for study: KAILEE suspected without comorbid medical or sleep disorders Sleep study to be performed: Home Sleep Apnea Test (HSAT) Special instructions: None-follow laboratory protocol Mary Yeh Tech --- Sleep Medicine Staff Note: I have read the above protocol, edited as needed, and agree to the plan. Rafiq Whitlock APRN.CIRCULATION MAN 2:16 PM, 11/12/2024 [facility] 11-11-2024 Note HNO ID: [id number] Author: ?, ?, ? Service: ? Author Type: ? Type: Progress Notes Filed: 11/25/2024 12:36 Note Text: November 11, 2024 An order has been received for Home Sleep Apnea Test (HSAT) from Oneil Duran a B. [facility] Staff. Visit prep complete. Comments :No The sleep study is scheduled for 11/23. Insurance: Payor: CIGNA / Plan: CIGNA PPO TPA / Product Type: PPO / Payer/Plan Subscr Sex Relation Sub. Ins. ID Effective Group Num 1. CIGNA - CIGNA* HARMAN CRISOSTOMO 02/25/1962 Male Spouse [id number] 06/09/23 32N [address] Laura Mart [facility] 10-12-2024 Instructions Oneil Mohr APRN.CNP - 10/12/2024 3:48 PM EDT Plan Home sleep study Neuropsychology testing Follow up with Oneil Mohr APRN.CNP 1-2 weeks after neuropsychology testing is complete. documented in this encounter [facility] 10-12-2024 History of Presen t illness Narrative Images from the original note were not included. Alana Crisostomo 1970 October 12, 2024 Referral Source: No referring provider defined for this encounter. Phone: N/A Fax: [facility] INITIAL PATIENT EVALUATION Accompanied by:spouse Identifying Information: Alana Crisostomo is a 54 year old right-handed, White, female with a past medical history of migraines, CHF, venous insufficiency of leg, HTN who presents for memory concerns. History of Present Illness: CT Brain 07/26/24 FINDINGS: No intracranial hemorrhage, extra-axial fluid collection, hydrocephalus, midline shift, or acute infarction. No other mass effect. Patent basal cisterns. No abnormal parenchymal or extra-axial enhancement. No calvarial fracture. Normal soft tissues. Paranasal sinuses and mastoid air cells are well-aerated. Onset and progression:2 years progressive short term memory loss Feels she has always had a poor memory. Forgets conversations and repeats conversations. Forgets if she closed the garage door. She has to go back to look. Some word finding difficulty. She will want to say something and it comes out slow. If it is not written down she forgets she was going to do something. 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 Some difficulties at work with trouble remembering names of people in a case. It has been apparent to coworkers. She has good notes and examples that she uses when filling out forms. Childhood injury - refrigerator fell on her head when she was 6. She has surgical mesh in her head. They were not able to do the MRI because of the mesh so she had a CT scan. Over the years her spouse has attibuted memory loss to this. The last few years her memory has worsened with repeated conversations. She has had some behavorial changes described as not having a filter. She may yell at a turret press operator if her order is not right or yell at other drivers on the road. She is more impulsive. She buys more than she should. She impulsively buys tip tickets when out at a bar and also has been binge eating. This is different than her previous behavior. She is currently going through menopause. She has hot flashes at night. She sleeps 5-6/hrs. Feels tired in the mrning. So busy at work she forgets she is tired. Snores and sometimes gasps and wakes up during the night. Restless sleeper but no dream enactment behavior. Will take short naps on the weekend. Living Arrangement / Ability to function: Alana Crisostomo currently resides with spouse in their home ADLs: independent Driving:independent - she has forgotten where she is going a few times. Finances:she does together with spouse Medications: independent but needed to buy a pill box to help her remember Cooking:n/a Cell phone: no trouble Family History: The patient family history is not on file. The patient has no family status information on file. Family history of dementia:father parkinson's disease dementia Family history of movement disorder:parkinson's disease Social History: Education:1 year college Occupation:[employer] 1 son 20 years old has no history on file for tobacco use. Alcohol Use: Not on file has no history on file for drug use. POA: Unknown Past Medical History: The patient has no past medical history on file. Is there a history of traumatic brain injury? yes Past Surgical History: The patient has no past surgical history on file. Allergies: ALLERGIES Not on File Medications: No current outpatient medications on file prior to visit. No current facility-administered medications on file prior to visit. Physicians: PMD: Ranjit Woodruff MD Patient-Entered Data: Patient-Reported 10/10/2024 -- Where are you currently living? Home / Private residence Are you using any community resources to help care for yourself? No Has your caregiver accompanied you today? No Did you receive help completing this questionnaire? No If you received help, could you have completed this questionnaire on your own? N/A - I did not receive any help Activities of Daily Living (ADL) No data to display PROMIS-10 10/10/2024 PROMIS 10 Health, in general Good Quality of life, in general Good Physical health, in general Fair Mental health, in general Good Social activities satisfaction Good Performing ADL's Mostly Social role satisfaction Good Pain, on average 4 Fatigue, on average Mild Emotional problems Often PHYSICAL Score 42.3 (Good) MENTAL Score 41.1 (Good) PHQ-9 10/10/2024 PHQ-9 All Questions Little interest or pleasure in doing things: 0 Feeling down, depressed, or hopeless: 0 Trouble falling or staying asleep, or sleeping too much 1 Feeling tired or having little energy 0 Poor appetite or overeating 1 Feeling bad about yourself - or that you are a failure or have let yourself or your family down 0 Trouble concentrating on things, such as reading the newspaper or watching television 1 Moving or speaking so slowly that other people could have noticed. Or the opposite - being so fidgety or restless that you have been moving around a lot more than usual 1 Thoughts that you would be better off , or of hurting yourself in some way 0 PHQ-9 Score 4 (0-4) minimal depression (5-9) mild depression (10-14) moderate depression (15-19) moderately severe depression (20-27) severe depression Full History of PHQ-9 Scores PHQ-9 Score 10/10/2024 4 Sleep 10/10/2024 -- What is your average total sleep time per night over the past 4 weeks? 6 Hours What is your average total sleep time during the day over the past 4 weeks? 6 Hours Have you been diagnosed with sleep apnea? No Snore Loudly Yes Tired, fatigued or sleepy in daytime No Stop breathing or choking/gasping during sleep Yes High blood pressure Yes Probability of moderate-severe sleep apnea (%) SAPS V2 7 (Sleep study not recommended) 10/10/2024 Insomnia Severity Index Difficulty falling asleep 1 Difficulty staying asleep 1 Problem waking up too early 0 Sleep interferes with daily functions 1 Sleep problems noticeable to others 1 Worried/distressed about current sleep problems 0 Caregiver-Reported No data to display Dementia Severity Rating Scale (DSRS) No data to display REVIEW OF SYSTEMS: Weight change/Appetite: some weight gain Hearing: wnl Vision: lasix 2000, wears glasses for reading Change in memory problems : see HPI Constipation, Diarrhea: constipation Incontinence: denies Presence of pain and effect on function? denies Falls/injuries/accidents: denies. NEURO: SEE HPI General Medical Exam: General: Well-nourished appearing, NAD. Awake, alert. HEENT: Normocephalic/atraumatic. Mental Status Exam Orientation: alert, oriented x4 Appearance: normal grooming Eye contact: normal Facial expression: appropriate Psychomotor: normal Speech/Language: unremarkable -can name, repeat with no dysarthria Mood: ok Affect: pleasant PDW/SI/Self-injurious behavior:denies Emotional state: euthymic Thought Process: logical Thought Content: appropriate Hallucinations:denies Delusions:denies Judgment: impaired due to impulsiveness Insight: good 3-Step Luria task:n/a Boone Cognitive Assessment (MoCA) Version 7.1 Total Score: 23/30 Visuospatial/Executive Alternating Hugo Making: Patient successfully draws the pattern without drawing any lines that cross. (+1) Visuoconstructional Skills (Shape): Patient is unable to successfully complete the task. (0) Visuoconstructional Skills (Clock): Abnormal-Numbers, Hands Visuospatial/Executive Score: 2/5 Naming The patient was able to name: Camel or Dromedary, Rhinoceros or Rhino, Lion Naming Score: 3/3 Memory Trials Memory Trial (1): The patient was able to correctly register: 5/5 Memory Trial (2): The patient was able to correctly register: 5/5 Attention Forward Digit Span: Correct (+1) Backward Digit Span: Correct (+1) Vigilance: Incorrect (0) Attention - Serial 7's: (4 or 5) Correct subtractions (+3) Attention Score: 5/6 Language Sentence Repetition (1): Correct (+1) Sentence Repetition (2): Incorrect (0) Verbal Fluency: Patient produced 13 words. (+1) Language Score: 2/3 Abstraction Abstraction (1): Patient successfully related similarity. (+1) Abstraction (2): Patient unable to relate similarity. (0) Abstraction Score: 1/2 Delayed Recall Word 1: Spontaneously recalled (+1) Word 2: Spontaneously recalled (+1) Word 3: Required multiple choice- 'latter-[employer], school, hospital' (0) Word 4: Spontaneously recalled (+1) Word 5: Spontaneously recalled (+1) Delayed Recall Score: 4/5 MIS Scoring Number of words recalled spontaneously: 4 x3: 12 Number of words recalled with a category cue: 0 x2: 0 Number of words recalled with a category cue: 1 x1: 1 Total MIS: Orientation The patient was able to answer correctly: exact date, month, year, day of the week, exact place (name of hospital, clinic, office), city. Orientation Score: 11/12 Education less than or equal to 12th grade: +0 Semantic Fluency Patient produced 11 words. MoCA Past Scores 10/12/2024 MoCA MOCA TOTAL SCORE 23 out of 30 Visuospatial/ Executive 2 Naming 3 Attention 5 Language 2 Abstraction 1 Delayed Recall 4 Orientation 6 Education Level 0 Vital Signs: BP 120/68 (BP Site: Right Arm, BP Position: Sitting, BP Cuff Size: Regular Adult) Pulse 70 Wt 82.6 kg (182 lb 1.6 oz) Neurologic Exam: Cranial Nerves: CN II: Visual maier full to confrontation CN III, CN IV, CN : PERRLA. Normal smooth pursuits. No square wave jerks. Eye motility findings Right Left Upgaze Normal Normal Lateral gaze Normal Normal Medial gaze Normal Normal Down-gaze Normal Normal CN V: Intact sensation to light touch in all three divisions of the trigeminal nerves bilaterally CN VII: Face symmetric, no ptosis or facial droop CN VIII: Auditory acuity intact CN IX/CN X: Normal palate elevation CN XI: Normal shoulder shrug CN XII: Normal tongue strength and range of motion; no deviation, atrophy or fasciculations Motor Exam: No increase in tone bilaterally. No cog-wheeling. No rest tremor. No significant postural or intention tremor. No bradykinesia with finger tapping bilaterally. No bradykinesia with toe tapping bilaterally. No fasciculations. No abnormal movements, jerks. Power 5/5 in UE's bilaterally. LE's 5/5 throughout as well. Sensory: Intact to light touch in all extremities. Pinprick, vibration, and proprioception not assessed. Romberg intact without sway. Coordination: FNF with no ataxia or dysmetria. Gait: Arises independently; normal posture; gait stable with normal stride length, rate, base and arm swing. Heel, toe, and tandem gait performed adequately. Diagnostic Results: MRI Brain from, not available Labs/Data: 07/12/24 TSH 1.705 (normal) Assessment: 1. Memory loss - ICD9: 780.93, ICD10: R41.3 (primary diagnosis) 2. Snoring - ICD9: 786.09, ICD10: R06.83 Alana Crisostomo is a pleasant 54 year old female who has experienced 2 years progressive short term memory loss. She is forgetful of conversations and tasks. 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 She has difficulty completing paperwork but has made good templates that she copies from. She has had behavioral changes including impulsivity and binging.She is appropriate at today's appointment. She is independent with ADLs however she has gotten lost while driving and ADLs take more mental effort for her to do. MoCA was 23/30 with deficits in visualspatial/executive functioning, language, attention, abstraction and delayed recall. (Corrected to 4/5 with cues). Her sleep is poor with possible sleep apnea. Plan: Home sleep study Neuropsychology testing Follow up with Oneil Mohr APRN.CNP 1-2 weeks after neuropsychology testing is complete. I spent a total of 60 minutes on the date of service which included esgh-sp-unps patient care and counseling and educating the patient/spouse. Case was reviewed and discussed with attending Rachelle Adkins MD. Dr Adkins is in agreement with plan stated above. Oneil Mohr APRN.CNP Attending Note I evaluated the patient and personally participated in the armas components. I agree with Oneil Mohr APRN.CNP's findings and plan as documented and have discussed the case and management of the patient's care with the SHIRLEY. 54 year old right handed female with 13 years of formal education who is here with her . PMH of TBI at 6 years old (when a refrigerator fell on top of her), migraines, CHF, venous insufficiency in legs, HTN Patient reports memory not good in general, but in the last 2 years has become worse. She will forget conversation, repeat herself, forget if she closed garage door, word finding problem. She will try to say something but it came out slow. If things were not written down she will forget. 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 She can problem solve by checking out other completed forms. It has become apparent to coworkers. She is independent with iADLs, but with driving she has forgotten where she was going a few times. She is learning a new system for finances. She uses a pillbox for medications, but she only takes one a day. She has personality and behavior changes. She is more mean, no filter. She will yell at senior staff accountant in restaurant. She gets irritated in driving and yell. She has done some impulsive shopping, buying more than she should. She also binges. No physical violence. Not out of control, but very different than how she used to be. She was not inappropriate during the visit. No new changes, medications. She is going through menopause. She has hot flashes at night, sleeps 5-6 hours. She is tired in the morning, and very busy at work. She snores, sometimes gasps and wakes up. She is restless, but no dream enactment behavior. She will take naps in weekends. FH: father with PDD COGNITIVE TESTING: [place] cognitive assessment test version 7.1 was . Visuospatial and executive function test was 2/5. (Hugo, oneida) Naming 3/3, Attention 5/6, Language 2/3, Abstraction 1/2, Delayed recall 4/5, Orientation 6/6. On delayed recall, patient was able to repeat 5 and 5 words after each word trial, can recall 4 words without cue, 0 additional words with category cue, 1 with multiple choice cue. With letter fluency, patient could come up with 13 words within a minute. Semantic fluency 11 words within a minute. MoCA 23/30, with some visuospatial dysfunction. No parkinsonism on exam. Impression: Memory loss Behavioral changes, less patient Poor sleep Patient reports worsening of short term memory in the last 2 years, with behavioral changes, more impatient, verbal aggression, and binging, impulsivity. Her memory is affecting her job, that other coworkers have noticed. She believes she can control her behavior. Sometimes they happened before she realized them. Since menopause, she also has not been sleeping as well. Her menopause started about 2 years ago. Patient brought in CD of her CT brain, unable to open. Report mentioned not acute process, but unclear of other details. Plan: Home sleep study Neuropsychology If concerned for FTD, can consider FDG-PET. Report visit with Oneil Mohr after all testing. Signature: Rachelle Adkins MD Date: 10/12/2024 Time: 3:25 PM Medical Decision Making: Problems: Low: Acute, uncomplicated illness or injury Moderate: New problem with uncertain prognosis Data: Unique test(s) ordered: 2 Assessment requiring an independent historian(s) Risk: Low: Low risk from testing/treatment Medical Decision Making Level: 4 - Moderate CC: 1. Ranjit Woodruff MD, (fax) [phone] Alana Crisostomo is a 54 year old year old right handed woman Accompanied by: patient and spouse. Referral by: No referring provider defined for this encounter. 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 Pt was referred would like to get a understanding of her health Vital Signs: There were no vitals taken for this visit. documented in this encounter [facility] 10-12-2024 Note HNO ID: [id number] Author: ONEIL MOHR APRN.CIRCULATION MAN Service: ? Author Type: Nurse Practitioner Type: Progress Notes Filed: 10/13/2024 13:21 Note Text: Alana Crisostomo 1970 October 12, 2024 Referral Source: No referring provider defined for this encounter. Phone: N/A Fax: [facility] INITIAL PATIENT EVALUATION Accompanied by:spouse Identifying Information: Alana Crisostomo is a 54 year old right-handed, White, female with a past medical history of migraines, CHF, venous insufficiency of leg, HTN who presents for memory concerns. History of Present Illness: CT Brain 07/26/24 FINDINGS: No intracranial hemorrhage, extra-axial fluid collection, hydrocephalus, midline shift, or acute infarction. No other mass effect. Patent basal cisterns. No abnormal parenchymal or extra-axial enhancement. No calvarial fracture. Normal soft tissues. Paranasal sinuses and mastoid air cells are well-aerated. Onset and progression:2 years progressive short term memory loss Feels she has always had a poor memory. Forgets conversations and repeats conversations. Forgets if she closed the garage door. She has to go back to look. Some word finding difficulty. She will want to say something and it comes out slow. If it is not written down she forgets she was going to do something. 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 Some difficulties at work with trouble remembering names of people in a case. It has been apparent to coworkers. She has good notes and examples that she uses when filling out forms. Childhood injury - refrigerator fell on her head when she was 6. She has surgical mesh in her head. They were not able to do the MRI because of the mesh so she had a CT scan. Over the years her spouse has attibuted memory loss to this. The last few years her memory has worsened with repeated conversations. She has had some behavorial changes described as not having a filter. She may yell at a turret press operator if her order is not right or yell at other drivers on the road. She is more impulsive. She buys more than she should. She impulsively buys tip tickets when out at a bar and also has been binge eating. This is different than her previous behavior. She is currently going through menopause. She has hot flashes at night. She sleeps 5-6/hrs. Feels tired in the mrning. So busy at work she forgets she is tired. Snores and sometimes gasps and wakes up during the night. Restless sleeper but no dream enactment behavior. Will take short naps on the weekend. Living Arrangement / Ability to function: Alana Crisostomo currently resides with spouse in their home ADLs: independent Driving:independent - she has forgotten where she is going a few times. Finances:she does together with spouse Medications: independent but needed to buy a pill box to help her remember Cooking:n/a Cell phone: no trouble Family History: The patient family history is not on file. The patient has no family status information on file. 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 Alcohol Use: Not on file has no history on file for drug use. POA: Unknown Past Medical History: The patient has no past medical history on file. Is there a history of traumatic brain injury? yes Past Surgical History: The patient has no past surgical history on file. Allergies: ALLERGIES Not on File Medications: No current outpatient medications on file prior to visit. No current facility-administered medications on file prior to visit. Physicians: PMD: Ranjit Woodruff MD Patient-Entered Data: Patient-Reported 10/10/2024 -- Where are you currently living? Home / Private residence Are you using any community resources to help care for yourself? No Has your caregiver accompanied you today? No Did you receive help completing this questionnaire? No If you received help, could you have completed this questionnaire on your own? N/A - I did not receive any help Activities of Daily Living (ADL) No data to display PROMIS-10 10/10/2024 PROMIS 10 Health, in general Good Quality of life, in general Good Physical health, in general Fair Mental health, in general Good Social activities satisfaction Good Performing ADL's Mostly Social role satisfaction Good Pain, on average 4 Fatigue, on average Mild Emotional problems Often PHYSICAL Score 42.3 (Good) MENTAL Score 41.1 (Good) PHQ-9 10/10/2024 PHQ-9 All Questions Little interest or pleasure in doing things: 0 Feeling down, depressed, or hopeless: 0 Trouble falling or staying asleep, or sleeping too much 1 Feeling tired or having little energy 0 Poor appetite or overeating 1 Feeling bad about yourself - or that you are a failure or have let (more content not included)... [facility] 10-12-2024 Note HNO ID: [id number] Author: HENRI SAMS MA Service: ? Author Type: Wheel Grinder Type: Progress Notes Filed: 10/13/2024 13:21 Note Text: Alana Crisostomo is a 54 year old year old right handed woman Accompanied by: patient and spouse. Referral by: No referring provider defined for this encounter. 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 Pt was referred would like to get a understanding of her health Vital Signs: There were no vitals taken for this visit. [facility] 02-13-2023 Hospital Discharg e instructions Follow Up Care 02/13/2023 14:14:34 With:NICK YUN, Andriy Hendricks, COLLIN Address: [address] [place], [place] [id number]- When: only if needed General Surgery [place] 01-21-2023 Evaluation + Plan note Diagnostic Tests PendingHepatic Function Panel 01/21/23Lipase Level 01/21/23 [facility] General Surgery [place] 11-24-2021 Evaluation + Plan note Diagnostic Tests PendingPAP [id number] IG Apt HPV,rfx 16/18,45 11/26/[address] [facility] Evaluation note Diagnosis Memory loss- Primary Snoring Other dyspnea and respiratory abnormality [facility] N[facility]ative No data available for this [facility] No data available for this section [facility] No data available for this section [facility] for [facility] Narrative* Diagnostic Procedure Only (Routine) - Closed Specialty Diagnoses / Procedures Referred By Casey castro Referred To [facility] Diagnoses Memory loss Procedures HOME SLEEP APNEA TEST (HSAT) SLEEP STD AIRFLOW HRT RATE&O2 SAT EFFORT Oneil Junior, BRIM STITCHER.CIRCULATION MAN [address] [place] [address] Phone: tel: fax: Neurology [address] [place] [address] Phone: tel: Referral ID Status Reason Start Date Expiration Date V isits Requested Visits Authorized [id number] Closed Auto-Generate d Referral 11/10/2024 06/08/2025 1 1 [facility] Summary Purpose Family History No Family History Records FoundNo Family History Records FoundNo Family History Records FoundNo Family History Records Found Advance Directives No Advanced Directives Records FoundNo Advanced Directives Records FoundNo Advanced Directives Records FoundNo Advanced Directives Records Found Additional Source Comments Care Team (unrecognized sect ion and content) Operations Intern Relationship Specialty Start Date End Date Ranjit Woodruff MD PCP - General Family Medicine 05/30/14 Operations Intern Relationship Specialty Start Date End Date Ranjit Woodruff MD PCP - General Family Medicine 05/30/14 Operations Intern Relationship Specialty Start Date End Date Ranjit Woodruff MD PCP - General Family Medicine 05/30/14 Operations Intern Relationship Specialty Start Date End Date Ranjit Woodruff MD PCP - General Family Medicine 05/30/14 INFORMATION SOURCE (unrecogn ized section and content) DATE CREATED AUTHOR 01/05/2022 [facility] DATE CREATED AUTHOR AUTHOR'S ORGANIZ ATION 12/02/2024 [facility] DATE CREATED AUTHOR AUTHOR'S ORGANIZ ATION 02/12/2025 [facility] DATE CREATED AUTHOR AUTHOR'S ANGE MEREDITH 03/01/2025 [facility] Source Comments (unrecognize d section and content) In the event this informatio n is protected by the Federal Confidentiality of Alcohol and Drug Abuse Patient Records regulations: The Federal rules restrict any use of the information to criminally investigate or prosecute any alcohol or drug abuse patient.[facility] the event this information is protected by the Federal Confidentiality of Alcohol and Drug Abuse Patient Records regulations: The Federal rules restrict any use of the information to criminally investigate or prosecute any alcohol or drug abuse patient.[facility] the event this information is protected by the Federal Confidentiality of Alcohol and Drug Abuse Patient Records regulations: The Federal rules restrict any use of the information to criminally investigate or prosecute any alcohol or drug abuse patient.[facility] the event this information is protected by the Federal Confidentiality of Alcohol and Drug Abuse Patient Records regulations: The Federal rules restrict any use of the information to criminally investigate or prosecute any alcohol or drug abuse patient.[facility] Reason for Visit (unrecogniz ed section and content) Reason Comments Established Patient Follow-Up OFFICE VIS IT FOR RECORDS PERTAINING TO PATIENTS WHO ARE OR HAVE BEEN ENROLLED IN A CHEMICAL DEPENDENCY/SUBSTANCEABUSE PROGRAM, SOME INFORMATION MAY BE OMITTED. This clinical summary was aggregated from multiple sources. Caution should be exercised in using it in the provision of clinical care. This summary normalizes information from multiple sources, and as a consequence, information in this document may materially change the coding, format and clinical context of patient data. In addition, data may be omitted in some cases. CLINICAL DECISIONS SHOULD BE BASED ON THE PRIMARY CLINICAL RECORDS. [facility] [employer] [facility]. provides no warranty or guarantee of the accuracy or completeness of information in this document.
--- OUTSIDE RECORDS SUMMARY | 2025-03-02 07:31 | XMS_ITS | Clinical Summary ---
Author Organization [facility] Address [address] [place] [address] Care Team Providers Care Ditch Inspector Name Role Phone Unavailable Primary Care Provider Unavailabl e Social History Tobacco Use Types Packs/Day Years Used Date Smoking Tobacco: Never Assessed Comments Unknown Sex and Gender Information Value Date Recorded Sex Assigned at Not on file Legal Sex Female 7:34 PM EDT Gender Identity Not on file Sexual Orientation Not on file Last Filed Vital Signs Vital Sign Reading Time Taken Comments Blood Pressure 155/97 09/10/2017 12:00 PM EDT Pulse - - Temperature - - Respiratory Rate - - Oxygen Saturation - - Inhaled Oxygen Concentration - - Weight 77.1 kg (170 lb) 09/10/2017 12:00 PM EDT Height 154.9 cm (5' 1 ) 09/10/2017 12:00 PM EDT Body Mass Index 32.12 09/10/2017 12:00 PM EDT Plan of Treatment Health Maintenance Due Date Last Done Comments CT Colonography 1971 Colonoscopy 1971 Colorectal Cancer Screening 1971 FIT-DNA 1971 FIT 1971 FOBT 1971 Sigmoidoscopy 1971 Pap Smear 01/04/1992 Cervical Cancer Screening 2001 HPV/Cotest 2001 Mammogram 2011 Influenza Vaccine (#1) 2025 3, 04/13/2022, 05/19/2021, Additional history exists
== END 2025-03-02 07:30 | disposition home or self-care (01) ==
LOC: MAMMO 07:29
PROVIDERS: PCP Family Medicine; Visit Provider Obstetrics & Gynecology
DX: Z12.31 Encounter for screening mammogram for malignant neoplasm of breast (principal)
CPT/HCPCS: 77063; 77067